=== PATIENT | female | born 1940 | race African-American/Black ===

== ENCOUNTER → 2016-10-10 | Outpatient (CLI) | payer MEDICARE, OTHER ==
[~2016-10-10] MED LIST: CARI350T21 PO; CLON0.1T PO; FERR200T3 PO; FURO40TA4 PO; HYDR-2595 PO; LEVO50TA7 PO; NISO8.5T PO; TRAM50TA2 PO
[2016-10-10 16:06] LABS: Urine Bilirubin Negative (Negative); Urine Blood Negative /uL (Negative); Urine Color Yellow (Yellow); Urine Glucose Normal (Normal); Urine Ketone Negative (Negative); Urine Nitrite Negative (Negative); Urine Urobilinogen Normal (Negative)
[2016-10-10 16:27] LABS: BUN/Creatinine Ratio 17.2; Bilirubin, Direct 0.1 mg/dL (0-0.2); Bilirubin, Total 0.3 mg/dL (0.2-1.0); Calcium 9.2 mg/dL (8.5-10.1); Potassium 5.4 mmol/L (3.5-5.1); Total Protein 8.3 g/dL (6.4-8.2)
[2016-10-10 16:44] LABS: Basophils # (auto) 0 uL; Basophils % (auto) 0.2 % (0.0-2.0); DEFINITIVE VIEW TRANSMISSION; Eosinophils # (auto) 0.1 uL; Eosinophils % (auto) 2.1 % (0.0-7.0); Hematocrit 27.6 % (36.0-46.0); Mean Corpuscular Hemoglobin 33.3 pg (28.0-32.0); Mean Corpuscular Hgb Conc. 32.5 g/dL (32.0-36.0); Mean Corpuscular Volume 102.2 fL (80.0-100.0); Mean Platelet Volume 7.6 fL (7.4-10.4); Monocytes # (auto) 0.5 uL; Monocytes % (auto) 6.9 % (0.0-12.0); Neutrophils # (auto) 5.2 uL; Neutrophils % (auto) 75.8 % (37.0-80.0); Platelet Count (auto) 278 10^3/uL (140-450); Red Cell Distribution Width 15.4 % (11.6-16.0); White Blood Cell 6.9 10^3/uL (4.4-10.8)
[2016-10-10 17:59] LABS: Macrocytosis Slight; Platelet Estimate Adequate
== END | disposition home or self-care (01) ==
LOC: LAB 10:04
PROVIDERS: ATTEND Internal Medicine Cardiovascular Disease
DX: E78.00 Pure hypercholesterolemia, unspecified (principal); D64.9 Anemia, unspecified; I10 Essential (primary) hypertension; E03.9 Hypothyroidism, unspecified; E55.9 Vitamin D deficiency, unspecified; K74.1 Hepatic sclerosis; E11.9 Type 2 diabetes mellitus without complications; N39.0 Urinary tract infection, site not specified
CPT/HCPCS: 36415; 80048; 80061; 80076; 81003; 82306; 83036; 84443; 85025

== ENCOUNTER → 2017-04-12 | Outpatient (CLI) | payer MEDICARE, OTHER ==
[~2017-04-12] MED LIST changes: +ADENOSINE 90 MG/30 ML INJ IV ONE; +ADENOSINE 92 MG in GIVE UN-DILUTED 0 ML IV ONE; +CARI-316 PO; -CARI350T21 PO
== END | disposition home or self-care (01) ==
LOC: Rad HDHVI 09:11
PROVIDERS: ATTEND Internal Medicine Cardiovascular Disease
DX: I95.9 Hypotension, unspecified (principal); I25.2 Old myocardial infarction; N19 Unspecified kidney failure; M25.511 Pain in right shoulder
CPT/HCPCS: 78452; 93005; 93306; 96374; 96375; A9500; J0153

== ENCOUNTER → 2017-08-14 | Outpatient (CLI) | payer MEDICARE, OTHER ==
[~2017-08-14] MED LIST changes: -ADENOSINE 90 MG/30 ML INJ IV ONE; -ADENOSINE 92 MG in GIVE UN-DILUTED 0 ML IV ONE; +ASCO500T11 PO; +CLON0.1D7 TD; +DIAZ10TA PO; +DICLTAB53 PO; +ESOM40CA39 PO; +HYDR-531 PO; +LEVO1CAP3 PO; +MUPI2OIN10 TOP; +SEVE800T8 PO
[2017-08-14 11:45] VITALS: BP 98/49
[2017-08-14 12:15] VITALS: BP 107/45
[2017-08-14 16:55] LABS: Basophils # (auto) 0 uL; Eosinophils # (auto) 0.1 uL; Hemoglobin 11.2 g/dL (12.2-16.2); Monocytes # (auto) 0.5 uL; Neutrophils # (auto) 3.6 uL; White Blood Cell 5.2 10^3/uL (4.4-10.8)
[2017-08-14 16:57] LABS: Basophils % (auto) 0.6 % (0.0-2.0); Eosinophils % (auto) 2.6 % (0.0-7.0); Hematocrit 33.3 % (36.0-46.0); Lymphocytes % (auto) 19.4 % (10.0-50.0); Mean Corpuscular Hemoglobin 37.1 pg (28.0-32.0); Mean Corpuscular Hgb Conc. 33.7 g/dL (32.0-36.0); Neutrophils % (auto) 68.4 % (37.0-80.0); Nucleated Red Blood Cells % 0.2 %; Platelet Count (auto) 211 10^3/uL (140-450); Red Blood Cells 3.03 10^6/uL (4.0-5.20); Red Cell Distribution Width 13.9 % (11.8-14.3)
[2017-08-14 16:59] LABS: Calcium 8.6 mg/dL (8.5-10.1); Potassium 3.8 mmol/L (3.5-5.1)
[2017-08-14 17:25] LABS: INR 0.98 (0.9-1.15); Partial Thromboplastin Time 27.3 sec (22.64-33.71); Prothrombin Time 10.7 sec (9.37-12.3)
== END | disposition home or self-care (01) ==
LOC: Rad HDHVI 11:18
PROVIDERS: ATTEND Internal Medicine Cardiovascular Disease
DX: Z01.818 Encounter for other preprocedural examination (principal); I70.0 Atherosclerosis of aorta; M85.88 Other specified disorders of bone density and structure, other site; D64.9 Anemia, unspecified; R79.1 Abnormal coagulation profile; I10 Essential (primary) hypertension
CPT/HCPCS: 36415; 71046; 80048; 85025; 85610; 85730; 93005; G0463

== ENCOUNTER 2017-08-16 11:17 | Day surgery (SDC) | payer MEDICARE, OTHER ==
[~2017-08-16] VITALS: Ht 162.6 cm; Wt 108.9 kg
[~2017-08-16 11:17] MED LIST changes: -CARI-316 PO; -CLON0.1T PO; -FERR200T3 PO; -HYDR-2595 PO
[2017-08-16] MEDS ORDERED: IOHEXOL 350 MG/ML 100ML IJ ONE ×2 (11:48→11:58)
[2017-08-16] MEDS ORDERED: LIDOCAINE 2%HCL (LOCAL ANESTH.) INJ 20ML MDV ONE (11:48)
[2017-08-16] MEDS ORDERED: ANGIOMAX 250 MG VIAL IV ONE (12:14)
[2017-08-16] MEDS ORDERED: SODIUM CHL 0.9% 0 ML ONE (12:15)
[2017-08-16] MEDS ORDERED: fentaNYL CITRATE 100 MCG/2 ML VL ONE (12:15)
[2017-08-16] MEDS ORDERED: MIDAZOLAM HCL 1MG/1ML-2 ML VIAL ONE (12:15)
[2017-08-16] MEDS ORDERED: IODIXANOL 320MG/ML 100ML BTL IV ONE (12:35)
== END 2017-08-16 15:00 | disposition home or self-care (01) ==
LOC: CATH 11:17
PROVIDERS: ATTEND Internal Medicine Cardiovascular Disease
DX: R07.9 Chest pain, unspecified (principal); R06.02 Shortness of breath; E66.9 Obesity, unspecified; E66.01 Morbid (severe) obesity due to excess calories; I12.0 Hypertensive chronic kidney disease with stage 5 chronic kidney disease or end stage renal disease; N18.6 End stage renal disease; E78.5 Hyperlipidemia, unspecified; M19.90 Unspecified osteoarthritis, unspecified site; Z68.41 Body mass index [BMI] 40.0-44.9, adult; Z88.1 Allergy status to other antibiotic agents; Z88.4 Allergy status to anesthetic agent
CPT/HCPCS: 93458; C1760; C1894; J1644; J2250; J3010; J7030; Q9967; 99152

== ENCOUNTER → 2017-09-12 | Outpatient (CLI) | payer MEDICARE, OTHER | END | disposition home or self-care (01) | LOC: LAB 12:22 | PROVIDERS: ATTEND Internal Medicine Cardiovascular Disease | DX: A49.02 Methicillin resistant Staphylococcus aureus infection, unspecified site (principal); I12.0 Hypertensive chronic kidney disease with stage 5 chronic kidney disease or end stage renal disease; E11.22 Type 2 diabetes mellitus with diabetic chronic kidney disease; N18.6 End stage renal disease | CPT/HCPCS: 87081 ==

== ENCOUNTER → 2018-07-24 | Outpatient (CLI) | payer MEDICARE, OTHER | END | disposition home or self-care (01) | LOC: Rad HDHVI 11:08 | PROVIDERS: ATTEND Internal Medicine Cardiovascular Disease | DX: I10 Essential (primary) hypertension (principal); I25.5 Ischemic cardiomyopathy | CPT/HCPCS: 93306 ==

== ENCOUNTER → 2018-07-30 | Outpatient (CLI) | payer MEDICARE, OTHER ==
[~2018-07-30] VITALS: Ht 162.6 cm; Wt 115.7 kg
[~2018-07-30] MED LIST changes: +ADENOSINE 90 MG/30 ML INJ IV ONE; +ADENOSINE 97 MG in GIVE UN-DILUTED 0 ML IV ONE
== END | disposition home or self-care (01) ==
LOC: Rad HDHVI 13:34
PROVIDERS: ATTEND Internal Medicine Cardiovascular Disease
DX: I12.0 Hypertensive chronic kidney disease with stage 5 chronic kidney disease or end stage renal disease (principal); N18.6 End stage renal disease; I25.5 Ischemic cardiomyopathy
CPT/HCPCS: 78452; 93005; 96374; 96375; A9500; J0153

== ENCOUNTER → 2018-10-28 | Outpatient (CLI) | payer MEDICARE, OTHER ==
[~2018-10-28] MED LIST changes: -ADENOSINE 90 MG/30 ML INJ IV ONE; -ADENOSINE 97 MG in GIVE UN-DILUTED 0 ML IV ONE; +READI-CAT 2 (BARIUM SULF)(VANILLA SMOOTHIE) 450ML ONE
== END | disposition home or self-care (01) ==
LOC: Rad HDHVI 11:48
PROVIDERS: ATTEND Internal Medicine Cardiovascular Disease
DX: K57.30 Diverticulosis of large intestine without perforation or abscess without bleeding (principal); N26.1 Atrophy of kidney (terminal); I70.0 Atherosclerosis of aorta; Z90.49 Acquired absence of other specified parts of digestive tract; Z90.710 Acquired absence of both cervix and uterus
CPT/HCPCS: 74176

== ENCOUNTER → 2019-06-13 | Outpatient (CLI) | payer MEDICARE, OTHER ==
[~2019-06-13] MED LIST changes: -READI-CAT 2 (BARIUM SULF)(VANILLA SMOOTHIE) 450ML ONE
== END | disposition home or self-care (01) ==
LOC: Rad HDHVI 10:55
PROVIDERS: ATTEND Internal Medicine Cardiovascular Disease
DX: S43.003A Unspecified subluxation of unspecified shoulder joint, initial encounter (principal); I77.819 Aortic ectasia, unspecified site; X58.XXXA Exposure to other specified factors, initial encounter; Y93.89 Activity, other specified; Y92.89 Other specified places as the place of occurrence of the external cause; Y99.8 Other external cause status
CPT/HCPCS: 71046

== ENCOUNTER 2019-12-31 12:45 | Inpatient (IN) | payer MEDICARE, OTHER ==
[~2019-12-31] VITALS: Ht 162.6 cm; Wt 106.6 kg
[2019-12-31 13:43] LABS: Eosinophils # (auto) 0 10 ^3/uL (0-0.8); Mean Corpuscular Volume 97.5 fL (80.0-100.0)
[2019-12-31 13:45] LABS: Basophils # (auto) 0.1 10 ^3/uL (0-0.2); Basophils % (auto) 0.3 % (0.0-2.0); Eosinophils % (auto) 0.2 % (0.0-7.0); Hematocrit 15.7 % (36.0-46.0); Lymphocytes # (auto) 1.1 10 ^3/uL (0.4-5.4); Lymphocytes % (auto) 4.6 % (10.0-50.0); Mean Corpuscular Hemoglobin 31.3 pg (28.0-32.0); Monocytes # (auto) 2.3 10 ^3/uL (0-1.3); Monocytes % (auto) 9.7 % (0.0-12.0); Neutrophils # (auto) 20.3 10 ^3/uL (1.6-8.6); Neutrophils % (auto) 85.2 % (37.0-80.0); Platelet Count (auto) 337 10^3/uL (140-450); Red Blood Cells 1.61 10^6/uL (4.0-5.20); Red Cell Distribution Width 19.5 % (11.8-14.3); White Blood Cell 23.8 10^3/uL (4.4-10.8)
[2019-12-31 14:00] LABS: Albumin 2.6 g/dL (3.4-5.0); Calcium 7.4 mg/dL (8.5-10.1); Magnesium 2.6 mg/dL (1.6-2.6); Potassium 4.3 mmol/L (3.5-5.1)
[2019-12-31 14:07] LABS: Bilirubin, Total 0.3 mg/dL (0.2-1.0); Total Protein 6.7 g/dL (6.4-8.2)
[2019-12-31 14:09] LABS: BUN/Creatinine Ratio 8.6
[2019-12-31] MEDS ORDERED: SODIUM CHLORIDE 0.9% 500 ML IV ONE (15:45)
[2019-12-31 17:15] VITALS: BP 151/53
[2019-12-31 17:35] VITALS: BP 158/62
[2019-12-31] MEDS ORDERED: NITROGLYCERIN 0.4 MG SL TAB SL PRN (17:45)
[2019-12-31] MEDS ORDERED: MORPHINE SULF INJ 2 MG/ML SYRINGE 1ML IV PRN (17:45)
[2019-12-31] MEDS ORDERED: FUROSEMIDE 40 MG/4 ML VIAL IV ONE (17:45)
[2019-12-31] MEDS ORDERED: HYDROcodone-ACET 10/325MG TAB PO SCH (18:00)
[2019-12-31] MEDS ORDERED: CLON0.1T PO (19:00)
[2019-12-31] MEDS ORDERED: CARI-277 PO (19:02)
[2019-12-31] MEDS ORDERED: DIAZ5TAB3 PO (19:03)
[2019-12-31] MEDS ORDERED: MIDO5TAB2 PO (19:05)
[2019-12-31] MEDS ORDERED: NIFE90TA49 PO ×2 (19:07→19:08)
[2019-12-31] MEDS ORDERED: FERR1TAB17 PO (19:11)
[2019-12-31] MEDS ORDERED: LIDO2.5C3 EX (19:13)
[2019-12-31 20:30] VITALS: BP 170/85
[2019-12-31 22:02] VITALS: BP 182/85
--- NOTE | 2019-12-31 22:30 | NUR ---
Telemetry admit from ISHMAEL MALAGON admitted to Telemetry unit after SBAR received. Patient oriented to Anuja Stewart RN primary RN, unit, room, bed, and unit policies regarding patient care and visiting hours. Patient now on continuous telemetry monitoring, tele box # 50 and telemetry reading on arrival to unit is SR. Patient weighed by bedscale and encouraged to call if they need something. All questions and concerns addressed, patient verbalized understanding. Bed in lowest position, bed alarm on, call light within reach, will continue to monitor Note: []
[2020-01-01] VITALS (11 sets, daily range): BP systolic 132–174; BP diastolic 57–92
--- NOTE | 2020-01-01 00:52 | NUR ---
1 unit of PRBC hooked after verification done, monitor for BT reaction
--- NOTE | 2020-01-01 03:33 | NUR ---
Blood transfusion done, flushed tubing with NS, no BT reaction noted
[2020-01-01] MEDS: LEVOTHYROXINE SODIUM 50 MCG TAB PO SCH (05:46)
[2020-01-01 05:50] LABS: Eosinophils # (auto) 0 10 ^3/uL (0-0.8); Eosinophils % (auto) 0.2 % (0.0-7.0); Hemoglobin 7.7 g/dL (12.2-16.2)
[2020-01-01 05:52] LABS: Basophils # (auto) 0.1 10 ^3/uL (0-0.2); Basophils % (auto) 0.5 % (0.0-2.0); Hematocrit 23.3 % (36.0-46.0); Lymphocytes # (auto) 1.2 10 ^3/uL (0.4-5.4); Mean Corpuscular Hemoglobin 31.5 pg (28.0-32.0); Mean Corpuscular Hgb Conc. 33.1 g/dL (32.0-36.0); Mean Corpuscular Volume 95.1 fL (80.0-100.0); Monocytes # (auto) 2.2 10 ^3/uL (0-1.3); Monocytes % (auto) 9.3 % (0.0-12.0); Neutrophils # (auto) 19.6 10 ^3/uL (1.6-8.6); Nucleated Red Blood Cells % 0.1 %; Platelet Count (auto) 305 10^3/uL (140-450); Red Blood Cells 2.45 10^6/uL (4.0-5.20); Red Cell Distribution Width 16.7 % (11.8-14.3); White Blood Cell 23.1 10^3/uL (4.4-10.8)
[2020-01-01 06:14] LABS: Potassium 4.8 mmol/L (3.5-5.1)
[2020-01-01 06:22] LABS: Albumin 2.4 g/dL (3.4-5.0); BUN/Creatinine Ratio 8.6; Calcium 7.2 mg/dL (8.5-10.1); Phosphorus 3.5 mg/dL (2.5-4.90); Total Protein 6.8 g/dL (6.4-8.2)
[2020-01-01] MEDS ORDERED: VANCOMYCIN 1GM/250ML 250 ML IV ONE (07:30)
[2020-01-01] MEDS: PIPERACILLIN-TAZOB 2.25GM 50 ML IV SCH ×2 (09:54→21:11)
[2020-01-01] MEDS: HYDROcodone-ACET 10/325MG TAB PO PRN ×2 (09:55→17:44)
[2020-01-01] MEDS: NIFEdipine ER 30 MG TAB PO SCH (10:00)
--- NOTE | 2020-01-01 10:22 | NUR ---
COMMUNITY DEVELOPMENT DIRECTOR AT BEDSIDE.
--- NOTE | 2020-01-01 10:51 | NUR ---
ENDED TRANSFUSION ON AUG WHEN ARRIVING ON SHIFT PRBC WAS NOT RUNNING. UNAWARE OF THE END TIME.
--- NOTE | 2020-01-01 12:54 | NUR ---
BLOOD INFUSED WITH DISLYSIS
--- NOTE | 2020-01-01 14:42 | NUR ---
DIALYSIS COMPLETE 2.9L TAKEN OFF. 1 UNIT OF BLOOD GIVEN BP 156/73 HR 92
--- NOTE | 2020-01-01 19:30 | NUR ---
Opening Shift Note Assumed care of patient, awake and alert. No S/S of distress/SOB or pain. Instructed on POC and to be NPO after MN, for EGD tomorrow call for assist PRN, patient verbalized understanding. Bed in lowest position, bed alarm on, call light within reach,will continue to monitor for changes Q1hr and PRN.
[2020-01-01] MEDS ORDERED: EPOETIN ALFA 10,000 UNIT/1 ML VIAL SC ONE (21:00)
[2020-01-01] MEDS ORDERED: PANTOPRAZOLE 40 MG TAB PO SCH (22:00)
[2020-01-02 05:00] VITALS: BP 142/69
[2020-01-02] MEDS: LEVOTHYROXINE SODIUM 50 MCG TAB PO SCH (05:49)
[2020-01-02] MEDS: HYDROcodone-ACET 10/325MG TAB PO PRN ×2 (05:50→22:49)
[2020-01-02 06:32] LABS: Basophils # (auto) 0 10 ^3/uL (0-0.2); Basophils % (auto) 0.3 % (0.0-2.0); Eosinophils # (auto) 0.1 10 ^3/uL (0-0.8); Eosinophils % (auto) 0.8 % (0.0-7.0); Hematocrit 28.6 % (36.0-46.0); Hemoglobin 9.6 g/dL (12.2-16.2); Lymphocytes # (auto) 1.1 10 ^3/uL (0.4-5.4); Mean Corpuscular Hemoglobin 32.1 pg (28.0-32.0); Mean Corpuscular Hgb Conc. 33.6 g/dL (32.0-36.0); Mean Corpuscular Volume 95.5 fL (80.0-100.0); Monocytes # (auto) 1.7 10 ^3/uL (0-1.3); Monocytes % (auto) 10.2 % (0.0-12.0); Neutrophils # (auto) 13.3 10 ^3/uL (1.6-8.6); Neutrophils % (auto) 81.7 % (37.0-80.0); Nucleated Red Blood Cells % 0.1 %; Platelet Count (auto) 339 10^3/uL (140-450); Red Cell Distribution Width 16.4 % (11.8-14.3); White Blood Cell 16.2 10^3/uL (4.4-10.8)
[2020-01-02 06:46] LABS: INR 1.24 (0.9-1.15)
[2020-01-02 08:00] VITALS: BP 135/66
[2020-01-02 09:00] VITALS: BP 135/66
[2020-01-02] MEDS ORDERED: FLUMAZENIL 0.1 MG/ML INJ 10ML MDV IV ONE (09:06)
[2020-01-02] MEDS ORDERED: NALOXONE HCL 0.4 MG/ML VIAL ONE (09:06)
[2020-01-02] MEDS ORDERED: SIMETHICONE 40 MG/0.6 ML ORAL DROP ONE (09:06)
[2020-01-02] MEDS ORDERED: SODIUM CHLORIDE LOCK 10 ML ONE (09:06)
[2020-01-02] MEDS ORDERED: diphenhdrAMINE HCL 50 MG/1 ML VL ONE (09:07)
[2020-01-02] MEDS ORDERED: LIDOCAINE VISCOUS 2% 15ML UD ONE (09:08)
[2020-01-02] MEDS: MIDAZOLAM HCL 5 MG/ML-1ML VIAL ONE ×2 (09:48→09:51)
[2020-01-02] MEDS: fentaNYL CITRATE 100 MCG/2 ML VL ONE ×2 (09:48→09:51)
[2020-01-02] MEDS: PIPERACILLIN-TAZOB 2.25GM 50 ML IV SCH ×2 (10:00→22:27)
[2020-01-02] MEDS: NIFEdipine ER 30 MG TAB PO SCH (10:00)
[2020-01-02 13:00] VITALS: BP 135/75
--- NOTE | 2020-01-02 13:45 | NUR ---
RECEIVED A CALL FROM [facility]DEL[facility]IO IN MICRO PATIENT POSITIVE MRSA IN NARES. CHARGE NURSE OMARI NOTIFIED AND DR MATHIS NOTIFIED WILL IMPLEMENT ORDERS OF BACTROBAN ORDERED BY DR MATHIS.
[2020-01-02 16:39] VITALS: BP 136/74
--- NOTE | 2020-01-02 19:40 | NUR ---
Opening Shift Note Assumed care of patient, awake and alert. No S/S of distress/SOB or pain. Safety measures in place, bed in lowest position, bed rails raised x2, call light within reach. Instructed on POC and to call for assist PRN, will continue to monitor for changes Q1hr and PRN.
--- NOTE | 2020-01-02 22:35 | NUR ---
Spoke with pt daughter Daughter called and expressed concern about patient receiving biopsy results. Daughter expressed desire for Dr. Mendez to not tell pt about biopsy results and to call daughter during rounds in order to provide support to pt. Addendum: 01/03/20 at 0029 by Estefany Miller RN RN Will relay message to carmelo HALL and Dr. Mendez if possible.
[2020-01-02] MEDS: MUPIROCIN 2% OINT 15gm or 22gm EACHNOSTRI SCH (22:48)
[2020-01-03 06:00] VITALS: BP 142/68
[2020-01-03] MEDS: LEVOTHYROXINE SODIUM 50 MCG TAB PO SCH (06:22)
[2020-01-03] MEDS: HYDROcodone-ACET 10/325MG TAB PO PRN ×3 (06:33→18:43)
--- NOTE | 2020-01-03 06:42 | NUR ---
Pt states Boylston not effective Pt states that she takes Boylston at home and it does not make much of a difference. Pt received Boylston but was advised to express concerns to MD. Notified pt that day RN will also be notified.
[2020-01-03] MEDS ORDERED: SODIUM CHL 0.9% 1000 ML BAG XX ONE (07:00)
[2020-01-03 09:00] VITALS: BP 105/52
[2020-01-03] MEDS: PIPERACILLIN-TAZOB 2.25GM 50 ML IV SCH ×2 (09:46→21:35)
[2020-01-03] MEDS: MUPIROCIN 2% OINT 15gm or 22gm EACHNOSTRI SCH ×2 (09:46→21:35)
[2020-01-03] MEDS: NIFEdipine ER 30 MG TAB PO SCH (10:00)
[2020-01-03 13:00] VITALS: BP 135/74
[2020-01-03 17:00] VITALS: BP 163/85
--- NOTE | 2020-01-03 19:20 | NUR ---
Opening Shift Note Assumed care of patient, awake and alert. No S/S of distress/SOB or pain. patient currently with the dialysis nurse. Instructed on POC and to call for assist PRN, will continue to monitor for changes Q1hr and PRN.
--- NOTE | 2020-01-03 19:43 | NUR ---
Dialysis completed, nurse removed 3L. Patient tolerated procedure well. Patient's BP 126/71, HR 94, RR 18. Patient denies pain or discomfort. Will continue to monitor every hour and as needed.
--- NOTE | 2020-01-03 20:00 | NUR ---
PATIENT'S COMPLAINING THAT RIGHT HAND IV IS UNCOMFORTABLE. SITE IS FREE FROM REDNESS OR SWELLING. DISCONTINUED IV WITH NO PAIN OR DISTRESS TO PATIENT. IV CATHETER INTACT. NEW IV PLACED RIGHT UPPER CHEST 22G, SALINE LOCKED.
[2020-01-03] MEDS ORDERED: EPOETIN ALFA 10,000 UNIT/1 ML VIAL SC ONE (21:00)
[2020-01-03 22:00] VITALS: BP 122/69
--- NOTE | 2020-01-03 22:19 | NUR ---
Paged Dr. Avila patient stating [place] is not alleviating her pain, requesting something else. Awaiting orders, will continue to monitor every hour and as needed.
--- NOTE | 2020-01-03 23:10 | NUR ---
ORDERS RECEIVED. AWAITING PHARMACY TO VERIFY. WILL CONTINUE TO MONITOR.
[2020-01-03] MEDS: KETOROLAC TROMETH 30 MG/ML 1ML VIAL IV PRN (23:44)
[2020-01-04 05:00] VITALS: BP 111/70
[2020-01-04] MEDS: LEVOTHYROXINE SODIUM 50 MCG TAB PO SCH (06:21)
[2020-01-04] MEDS: KETOROLAC TROMETH 30 MG/ML 1ML VIAL IV PRN ×2 (06:29→21:55)
--- NOTE | 2020-01-04 07:30 | NUR ---
Opening Shift Note Assumed care of patient, awake and alert. No S/S of distress/SOB or pain. Safety measures in place, bed in lowest position, bed rails raised x2, call light within reach. All needs met at this time. Instructed on POC and to call for assist PRN, will continue to monitor for changes Q1hr and PRN. Addendum: 01/04/20 at 2107 by Estefany Miller RN RN Note time incorrect. Correct time is 1929.
[2020-01-04 08:44] VITALS: BP 135/62
[2020-01-04] MEDS: PIPERACILLIN-TAZOB 2.25GM 50 ML IV SCH ×2 (09:42→21:54)
[2020-01-04] MEDS: NIFEdipine ER 30 MG TAB PO SCH (09:42)
[2020-01-04] MEDS: MUPIROCIN 2% OINT 15gm or 22gm EACHNOSTRI SCH ×2 (10:00→21:55)
[2020-01-04 12:54] VITALS: BP 125/79
--- NOTE | 2020-01-04 15:41 | NUR ---
Nutrition Assessment Notes Please refer to link for full assessment notes. Est Energy needs: 8110-1079 kcals (20-23 kcal/kgBW) d/t pt with ESRD on HD Est Protein needs: 114-124 gms/day (1.1-1.2 gm/kgBW) d/t pt with ESRD on HD Will continue to monitor and reassess prn. Addendum: 01/04/20 at [address] Amended: Links added.
[2020-01-04] MEDS: LACTULOSE 20Gm/30ML SOLN PO PRN (15:44)
[2020-01-04 17:22] VITALS: BP 134/63
[2020-01-04 22:00] VITALS: BP 120/63
[2020-01-05 05:00] VITALS: BP 116/56
--- NOTE | 2020-01-05 06:15 | NUR ---
Pt expressed concern about not having a bowel movement yet. Pt offered prescribed Lactulose, pt refused stating she "ought to wait a little longer". Pt advised to call if she decides that she wants the Lactulose, pt verbalized understanding. Will continue to monitor and notify day RN.
--- NOTE | 2020-01-05 06:15 | NUR ---
Turned and repositioned Pt turned onto her right side, bottom assessed for skin integrity, no issues noted at this time. Pt claimed to be having pain of 7/10 in her abdomen and shoulder. Pt offered prescribed Toradol 30mg, pt refused medication, says she will "wait a little longer". Will continue to monitor and notify day RN.
[2020-01-05] MEDS: LEVOTHYROXINE SODIUM 50 MCG TAB PO SCH (06:21)
[2020-01-05 09:00] VITALS: BP 114/68
[2020-01-05] MEDS: PIPERACILLIN-TAZOB 2.25GM 50 ML IV SCH ×2 (09:34→22:32)
[2020-01-05] MEDS: MUPIROCIN 2% OINT 15gm or 22gm EACHNOSTRI SCH ×2 (09:34→22:32)
[2020-01-05] MEDS: LACTULOSE 20Gm/30ML SOLN PO PRN ×2 (09:35→22:32)
[2020-01-05] MEDS: NIFEdipine ER 30 MG TAB PO SCH (09:35)
[2020-01-05] MEDS ORDERED: IOHEXOL 300 MG/ML 100ML BOTTLE IJ ONE (12:02)
[2020-01-05 13:00] VITALS: BP 113/57
--- NOTE | 2020-01-05 14:38 | NUR ---
DR HEALY AT BEDSIDE, PT INFORMED OF THE BIOPSY RESULT AND THE CT SCAN RESULT, DR. HEALY CALLED THE DAUGHTER AND MADE AWARE.
--- NOTE | 2020-01-05 15:10 | NUR ---
CALLED DR. OLIVERA, INFORMED OF THE CT SCAN RESULT AND DAUGHTER REQUESTING TO TALK TO HIM, DR. OLIVERA REQUESTED TO FAX THE CT SCAN RESULT WITH DAUGHTER'S PHONE NUMBER.
--- NOTE | 2020-01-05 15:30 | NUR ---
CT RESULT FAXED TO DR. OLIVERA.
--- NOTE | 2020-01-05 15:56 | NUR ---
assessment Patient is a 79 year old female who is alert and oriented. Prior to admission patient lived home with family and functioned with assistance. Per patient she will return home to her prior living arrangements post discharge and family will transport her home. Patient informed me she has a fww, cane, and bsc for home use. Patient informed me Dr. Avila is her PCP. Patient informed me she is on service with [facility]. Patient informed me she is on service with [facility] at 1 pm. Patient has no safety issues regarding returning home on discharge. Patient will need a resumption order for [facility] to discharge. I will continue to monitor and follow up as appropriate. I informed patient she has a right to speak to a neonatal social worker regarding all care. I informed patient she has a right to participate in any and all discharge planning. Patient is aware of visiting hours on the hospital floor. I informed patient she has a right to privacy. Patient has an advanced directive and her POA is her daughter Darcie [phone]. Patient verbalized understanding and agreed to discharge plan home or to SNF. Addendum: 01/05/20 at 1601 by Lou HARRIS Amended: Links added.
[2020-01-05 17:02] VITALS: BP 121/57
--- NOTE | 2020-01-05 19:50 | NUR ---
Opening Shift Note Assumed care of patient, awake and alert. No S/S of distress/SOB or pain. Instructed on POC and to call or assist PRN, will continue to monitor for changes Q1hr and PRN.
[2020-01-05 22:00] VITALS: BP 112/59
--- NOTE | 2020-01-05 22:00 | NUR ---
PATIENT DAUGHTER EMELY CALLED UPDATED PATIENT CONDITION AND PLAN OF CARE. EMELY VERBALIZES UNDERSTANDING WILL CONTINUE TO MONITOR PATIENT.
--- NOTE | 2020-01-05 22:30 | NUR ---
PATIENT C/O 03/27 ABDOMINAL AND BACK PAIN. REQUESTING PAIN MEDICAITON. ADMINISTERED TORADOL AND NORCO PRESCRIBED. PATIENT TOLERATED WELL. WILL CONTINUE TO MONITOR PATIENT.
[2020-01-05] MEDS: KETOROLAC TROMETH 30 MG/ML 1ML VIAL IV PRN (22:32)
[2020-01-05] MEDS: HYDROcodone-ACET 10/325MG TAB PO PRN (22:32)
--- NOTE | 2020-01-06 01:11 | NUR ---
GAVE REPORT TO NURSE CALI TO RESUME CARE OF PATIENT. TRANSFERRING PATIENT TO ROOM 220B
--- NOTE | 2020-01-06 01:30 | NUR ---
assumed care of pt who is alert and oriented x2, f/c in place, NAD noted. Pt given a cup of ice and tv turned to C per request.
[2020-01-06 06:01] VITALS: BP 115/57
[2020-01-06 06:28] LABS: Basophils # (auto) 0.1 10 ^3/uL (0-0.2); Basophils % (auto) 0.6 % (0.0-2.0); Eosinophils # (auto) 0.6 10 ^3/uL (0-0.8); Hemoglobin 8.9 g/dL (12.2-16.2); Lymphocytes # (auto) 1.5 10 ^3/uL (0.4-5.4); Lymphocytes % (auto) 15.7 % (10.0-50.0); Mean Corpuscular Hgb Conc. 32.8 g/dL (32.0-36.0); Mean Corpuscular Volume 97.5 fL (80.0-100.0); Monocytes # (auto) 0.9 10 ^3/uL (0-1.3); Monocytes % (auto) 9.7 % (0.0-12.0); Neutrophils # (auto) 6.4 10 ^3/uL (1.6-8.6); Platelet Count (auto) 442 10^3/uL (140-450); Red Blood Cells 2.77 10^6/uL (4.0-5.20); White Blood Cell 9.5 10^3/uL (4.4-10.8)
[2020-01-06 06:49] LABS: BUN/Creatinine Ratio 6.8; Calcium 7.4 mg/dL (8.5-10.1); Potassium 4.3 mmol/L (3.5-5.1)
[2020-01-06] MEDS ORDERED: SODIUM CHL 0.9% 1000 ML BAG XX ONE (07:00)
--- NOTE | 2020-01-06 08:15 | NUR ---
Opening Shift Note Assumed care of patient, awake and alert. No S/S of distress/SOB or pain. Instructed on POC and to call for assist PRN, will continue to monitor for changes Q1hr and PRN. Bed locked in lowest position with two side rails up and call light in reach.
[2020-01-06 09:00] VITALS: BP 120/62
[2020-01-06] MEDS: PIPERACILLIN-TAZOB 2.25GM 50 ML IV SCH ×2 (10:29→22:45)
[2020-01-06] MEDS: NIFEdipine ER 30 MG TAB PO SCH (10:30)
[2020-01-06] MEDS: MUPIROCIN 2% OINT 15gm or 22gm EACHNOSTRI SCH ×2 (11:30→22:44)
[2020-01-06 13:00] VITALS: BP 115/49
[2020-01-06 17:00] VITALS: BP 121/68
[2020-01-06 22:12] VITALS: BP 100/52
[2020-01-06] MEDS: HYDROcodone-ACET 10/325MG TAB PO PRN (22:48)
[2020-01-06] MEDS: KETOROLAC TROMETH 30 MG/ML 1ML VIAL IV PRN (23:57)
[2020-01-07 05:33] VITALS: BP 114/64
[2020-01-07] MEDS ORDERED: LIDOCAINE 1% HCL (LOCAL ANESTH.) INJ 20ML MDV ONE (07:01)
[2020-01-07] MEDS ORDERED: ceFAZolin 1GM VL ONE (07:01)
[2020-01-07] MEDS ORDERED: HEPARIN SODIUM (PORCINE) 5000 UNITS/ML 1ML VIAL ONE (07:02)
[2020-01-07] MEDS ORDERED: HEPARIN 1,000 UNITS/ml 1ML VIAL ONE (07:02)
--- NOTE | 2020-01-07 07:15 | NUR ---
OFF UNIT PATIENT TRANSFERRED TO O.R. FOR PROCEDURE
[2020-01-07] MEDS ORDERED: ceFAZolin 1GM/50ML 50 ML IV ONE (07:18)
[2020-01-07] MEDS ORDERED: GLYCOPYRROLATE 0.2 MG/ML 1ML VIAL ONE (07:25)
[2020-01-07] MEDS ORDERED: KETAMINE HCL 10 ML ONE (07:25)
[2020-01-07] MEDS ORDERED: MIDAZOLAM HCL 1MG/1ML-2 ML VIAL ONE (07:25)
[2020-01-07] MEDS ORDERED: ONDANSETRON HCL 4 MG/2 ML VIAL ONE (07:25)
[2020-01-07 07:51] LABS: INR 1.22 (0.9-1.15); Partial Thromboplastin Time 35.4 sec (23.64-32.05)
[2020-01-07] MEDS ORDERED: ONDANSETRON HCL 4 MG/2 ML VIAL IV PRN (08:30)
--- NOTE | 2020-01-07 09:40 | NUR ---
ON UNIT PATIENT RETURNED TO ROOM. NO S/S OF DISTRESS, SOB, NO C/O PAIN. WILL CONTINUE TO MONITOR
[2020-01-07] MEDS: PIPERACILLIN-TAZOB 2.25GM 50 ML IV SCH ×2 (09:55→22:08)
[2020-01-07] MEDS: MUPIROCIN 2% OINT 15gm or 22gm EACHNOSTRI SCH (09:55)
[2020-01-07] MEDS: NIFEdipine ER 30 MG TAB PO SCH (09:56)
[2020-01-07 12:00] VITALS: BP 116/64
--- NOTE | 2020-01-07 16:23 | NUR ---
Nutrition Assessment Notes Pt wt is 105.0 kg Pt was sleeping with no relatives at bedside when rounded this morning. Pt is with a Renal Standard diet, appetite is fair, aeb ave 67% PO intake over 3 meals per RN doc. Will continue to monitor PO status, skin status, pertinent labs and weight trends. Will f/u in 3-5 days. Est Energy needs: 8643-1951 kcals (20-23 kcal/kgBW) d/t pt with ESRD on HD Est Protein needs: 114-124 gms/day (1.1-1.2 gm/kgBW) d/t pt with ESRD on HD Will continue to monitor and reassess prn. LABS: BUN 52 H, Cr 7.64 H, GFR 5 L, Gluc 108 H, Ca 7.4 L, Alb 2.4 L GI: Pt has constipation per RN doc. BS: 19 low risk. Refer to wound assessment report for full details. PES: 1) Obesity r/t energy itake in excess of energy needs aeb 189% IBW and BMI of 39.1 kg/m2 2) Altered nutrition related alb values r/t current/chronic medical condition aeb elev RFTs, low GFR, hyperglycemia, mod Comments Will continue to monitor PO status, skin status, pertinent labs and weight trends. Will f/u in 3-5 days. 1) Continue to closely monitor pt PO intake to meet at least 75% of meals 2) Continue current plan of care
[2020-01-07 17:00] VITALS: BP 107/70
[2020-01-07] MEDS ORDERED: FERROUS SULFATE 300 MG/5 ML ORAL LIQ GT SCH (22:00)
[2020-01-07 22:07] VITALS: BP 120/62
[2020-01-07] MEDS: HYDROcodone-ACET 10/325MG TAB PO PRN (22:21)
[2020-01-08] VITALS (7 sets, daily range): BP systolic 118–139; BP diastolic 58–68
[2020-01-08] MEDS: LEVOTHYROXINE SODIUM 50 MCG TAB PO SCH ×2 (06:42→06:44)
[2020-01-08] MEDS ORDERED: SODIUM CHL 0.9% 1000 ML BAG XX ONE (07:00)
--- NOTE | 2020-01-08 07:30 | NUR ---
Opening Shift Note Assumed care of patient, awake and alert. No S/S of distress/SOB or pain. Instructed on POC and to call for assist PRN, will continue to monitor for changes Q1hr and PRN. Fall precautions in place per safety protocol.
[2020-01-08 07:36] LABS: Hematocrit 25.6 % (36.0-46.0)
[2020-01-08 07:40] LABS: Hemoglobin 8.5 g/dL (12.2-16.2)
[2020-01-08 07:54] LABS: % Iron Saturation 26.7 % (15-50)
[2020-01-08 07:55] LABS: Potassium 4.8 mmol/L (3.5-5.1)
[2020-01-08 07:59] LABS: BUN/Creatinine Ratio 6.3; Calcium 7.2 mg/dL (8.5-10.1)
[2020-01-08] MEDS: PIPERACILLIN-TAZOB 2.25GM 50 ML IV SCH ×2 (10:00→22:08)
--- NOTE | 2020-01-08 11:00 | NUR ---
Patient receiving dialysis at this time. Patients ABX and Procardia held due to dialysis. Will cont to monitor patient.
--- NOTE | 2020-01-08 13:00 | NUR ---
Hold PT, pt is receiving dialysis. Will attempt again later.
--- NOTE | 2020-01-08 15:25 | NUR ---
Dialysis Dialysis done at this time. 2L out. Patient VSS. Will administer morning meds at this time.
[2020-01-08] MEDS: NIFEdipine ER 30 MG TAB PO SCH (15:30)
[2020-01-08] MEDS ORDERED: PIPERACILLIN-TAZOB 2.25GM 50 ML IV ONE (15:30)
[2020-01-08] MEDS: HYDROcodone-ACET 10/325MG TAB PO PRN ×2 (15:43→23:05)
[2020-01-08] MEDS ORDERED: FLEET ENEMA(ADULT) 135 ML PR PRN (15:45)
--- NOTE | 2020-01-08 16:15 | NUR ---
New orders Spoke to MD Avila regarding patient ferrous sulfate medication being scheduled for GTube route and patient does not have a GTube in place. Per MD Avila, change to PO 325mg BID. This nurse informed MD Avila, that patient was requesting an alternative method other than lactulose for her constipation. Per patient, lactulose is not working and is only making her gassy. Per MD Avila, order Fleet enemas daily PRN for constipation. MD Avila also orders one unit of rbc's or patient. This nurse notified MD Avila that HGB was 8.5. Per MD Avila, still give one unit of RBC'S. All orders read back and verified. Will carry out new orders and cont to monitor patient.
[2020-01-08] MEDS: FERROUS SULFATE 325 MG TAB PO SCH (18:09)
[2020-01-09] VITALS (7 sets, daily range): BP systolic 110–142; BP diastolic 57–70
--- NOTE | 2020-01-09 01:48 | NUR ---
1 unit of PRBC's Transfused Patient educated on S/S prior to transfusion. Patient showed no S/S of reaction during transfusion. Patient tolerated well. Will continue to monitor.
[2020-01-09] MEDS: LEVOTHYROXINE SODIUM 50 MCG TAB PO SCH (05:57)
[2020-01-09] MEDS: HYDROcodone-ACET 10/325MG TAB PO PRN (05:58)
[2020-01-09] MEDS: FERROUS SULFATE 325 MG TAB PO SCH (08:05)
[2020-01-09 08:40] LABS: Basophils # (auto) 0 10 ^3/uL (0-0.2); Eosinophils # (auto) 0.5 10 ^3/uL (0-0.8); Hemoglobin 9.5 g/dL (12.2-16.2); Lymphocytes # (auto) 1.4 10 ^3/uL (0.4-5.4); Mean Corpuscular Volume 93.6 fL (80.0-100.0); Neutrophils # (auto) 8.3 10 ^3/uL (1.6-8.6)
[2020-01-09 08:44] LABS: Basophils % (auto) 0.3 % (0.0-2.0); Eosinophils % (auto) 4.5 % (0.0-7.0); Hematocrit 28.8 % (36.0-46.0); Lymphocytes % (auto) 12.3 % (10.0-50.0); Mean Corpuscular Hemoglobin 30.9 pg (28.0-32.0); Monocytes % (auto) 9.1 % (0.0-12.0); Neutrophils % (auto) 73.8 % (37.0-80.0); Nucleated Red Blood Cells % 0.1 %; Platelet Count (auto) 476 10^3/uL (140-450); Red Blood Cells 3.08 10^6/uL (4.0-5.20); Red Cell Distribution Width 16.9 % (11.8-14.3); White Blood Cell 11.3 10^3/uL (4.4-10.8)
[2020-01-09] MEDS: PIPERACILLIN-TAZOB 2.25GM 50 ML IV SCH (09:06)
[2020-01-09] MEDS: NIFEdipine ER 30 MG TAB PO SCH (09:07)
--- NOTE | 2020-01-09 14:40 | NUR ---
Called and left a message to Dr. Avila to let him know that as per pt, she was told by doctor that she was going to be d/c today with home health, and that there is no orders placed for d/c or for home health.
--- NOTE | 2020-01-09 16:03 | NUR ---
SS consult for home PT. Pt resides with her family and will be returning home upon discharge. Pt to resume services with [facility] upon discharge. Contacted [facility] ([phone])and faxed clinical information. Pt accepted for services and will be followed up post discharge. No further social service concerns or needs.
--- NOTE | 2020-01-09 17:00 | NUR ---
Discharge instructions given as ordered. Encourage to follow up with PMD as instructed. All questions and concerns addressed. Patient verbalized understanding. Medication reconciliation form completed and copy given to patient. No home medications held in Pharmacy, and no needed vaccines to be given. IV removed with catheter intact, pressure dressing applied, petersen catheter removed. Telemetry unit returned to ICU.
--- NOTE | 2020-01-09 17:35 | NUR ---
Patient taken to vehicle via wheelchair with all personal belongings, accompanied by staff, family member awaiting out of the hospital. No distress noted at time of departure.
[2020-01-22] MEDS ORDERED: NIFE90TA49 PO (14:47)
== END 2020-01-09 17:35 | disposition home health service (06) | DRG 871 ==
LOC: ER 12:45 → EDBD 12:45 → TELE 12:46 → TELE-WESTW 21:59 → TELE-CENTR 01-06 01:26
PROVIDERS: ADMIT Internal Medicine Cardiovascular Disease; ATTEND Internal Medicine Cardiovascular Disease
PROC: 30233N1 Transfusion of Nonautologous Red Blood Cells into Peripheral Vein, Percutaneous Approach (ICD-10-PCS; 2020-01-01)
PROC: 5A1D70Z Performance of Urinary Filtration, Intermittent, Less than 6 Hours Per Day (ICD-10-PCS; 2020-01-01)
PROC: 5A1D70Z Performance of Urinary Filtration, Intermittent, Less than 6 Hours Per Day (ICD-10-PCS; 2020-01-03)
PROC: 5A1D70Z Performance of Urinary Filtration, Intermittent, Less than 6 Hours Per Day (ICD-10-PCS; 2020-01-06)
PROC: 05H433Z Insertion of Infusion Device into Left Innominate Vein, Percutaneous Approach (ICD-10-PCS; 2020-01-07)
PROC: 0DB38ZX Excision of Lower Esophagus, Via Natural or Artificial Opening Endoscopic, Diagnostic (ICD-10-PCS; 2020-01-07)
PROC: B51V1ZA Fluoroscopy of Other Veins using Low Osmolar Contrast, Guidance (ICD-10-PCS; 2020-01-07)
PROC: 0JH63WZ Insertion of Totally Implantable Vascular Access Device into Chest Subcutaneous Tissue and Fascia, Percutaneous Approach (ICD-10-PCS; principal; 2020-01-07 07:35)
PROC: 5A1D70Z Performance of Urinary Filtration, Intermittent, Less than 6 Hours Per Day (ICD-10-PCS; 2020-01-08)
DX: A41.9 Sepsis, unspecified organism (principal); N18.6 End stage renal disease; J18.9 Pneumonia, unspecified organism; G93.41 Metabolic encephalopathy; E44.0 Moderate protein-calorie malnutrition; I13.2 Hypertensive heart and chronic kidney disease with heart failure and with stage 5 chronic kidney disease, or end stage renal disease; C15.9 Malignant neoplasm of esophagus, unspecified; C78.7 Secondary malignant neoplasm of liver and intrahepatic bile duct; I47.1 Supraventricular tachycardia; N39.0 Urinary tract infection, site not specified; K92.1 Melena; Z99.2 Dependence on renal dialysis; I50.9 Heart failure, unspecified; E66.01 Morbid (severe) obesity due to excess calories; M19.90 Unspecified osteoarthritis, unspecified site; Z20.828 Contact with and (suspected) exposure to other viral communicable diseases; D50.0 Iron deficiency anemia secondary to blood loss (chronic); I49.3 Ventricular premature depolarization; J45.909 Unspecified asthma, uncomplicated; K59.00 Constipation, unspecified; I25.2 Old myocardial infarction; Z82.3 Family history of stroke; Z82.49 Family history of ischemic heart disease and other diseases of the circulatory system; Z85.01 Personal history of malignant neoplasm of esophagus; Z86.718 Personal history of other venous thrombosis and embolism; Z79.899 Other long term (current) drug therapy; Z88.1 Allergy status to other antibiotic agents; Z88.8 Allergy status to other drugs, medicaments and biological substances; Z68.39 Body mass index [BMI] 39.0-39.9, adult
CPT/HCPCS: 36415; 43239; 70450; 71045; 71260; 74177; 80048; 80053; 82270; 82728; 83540; 83550; 83605; 83735; 83880; 84100; 84443; 84484; 85014; 85018; 85025; 85610; 85730; 86850; 86900; 86901; 86920; 87040; 87081; 90935; 93005; 96360; 97110; 97116; 97530; G0378; J0690; J0885; J1642; J1885; J2001; J2250; J2405; J2543

== ENCOUNTER → 2020-01-20 | Outpatient (CLI) | payer MEDICARE, OTHER ==
[~2020-01-20] MED LIST changes: +CARI-277 PO; -CLON0.1D7 TD; +CLON0.1T PO; -DIAZ10TA PO; +DIAZ5TAB3 PO; -DICLTAB53 PO; +FERR1TAB17 PO; -LEVO1CAP3 PO; +LIDO2.5C3 EX; +MIDO5TAB2 PO; -MUPI2OIN10 TOP; +NIFE90TA49 PO; -NISO8.5T PO; -SEVE800T8 PO
--- NOTE | 2020-01-20 14:00 | NUR ---
CLINIC PT ARRIVED TO THE [facility] FROM BACK OFFICE WITH ORDERS FOR UA, CBC, AND CT HEAD. A/OX4, WHEELCHAIR, ASSISTED BY DAUGHTER. HX DISCUSSED WITH PT. PT HAS ESOPHAGEAL CA AND IS SCHEDULED WITH [facility] NEXT WEEK. DUE TO THE TIME THE PT AND DAUGHTER REQUESTED TO COME BACK ON FOR CT BECAUSE THEY HAD AN APPOINTMENT WITH [facility]. PT IS ON DIALYSIS AND IS SCHEDULED FOR TX ON WED AND FRI THIS WEEK. PT HAS LOW URINE O/P. DAUGHTER WAS GIVEN URINE CUP WITH INSTRUCTIONS TO GET CLEAN CATCH AND REFRIGERATE. LABS WERE DRAWN AND SENT. MEDICATION REGIMEN WAS REVIEWED WITH PT AND DAUGHTER.
--- NOTE | 2020-01-20 14:45 | NUR ---
Discharge Instructions See e-MAR for any mediations given with this visit. Patient education given on disease process. Patient verbalized understanding. Previous labs reviewed. Patient discharged in stable condition with after care instructions and follow up appointment FOR CT ON TH @ 9AM.
[2020-01-20 15:56] LABS: Hematocrit 19.5 % (36.0-46.0); Mean Corpuscular Hemoglobin 33.7 pg (28.0-32.0); Mean Corpuscular Hgb Conc. 31.6 g/dL (32.0-36.0); Mean Corpuscular Volume 106.8 fL (80.0-100.0); Platelet Count (auto) 425 10^3/uL (140-450); Red Blood Cells 1.82 10^6/uL (4.0-5.20); White Blood Cell 16.5 10^3/uL (4.4-10.8)
[2020-01-20 16:12] LABS: Red Cell Distribution Width 24.6 % (11.8-14.3)
[2020-01-20 16:17] LABS: Hemoglobin 6.2 g/dL (12.2-16.2)
[2020-01-20 16:18] LABS: Basophils % (manual) 0 (0.0-2.0); Blast Cells 0; Eosinophils % (manual) 0 (0-7); Myelocytes % 0; Promyelocytes % 0; Reactive Lymphocytes 0
[2020-01-20 16:55] LABS: Band Neutrophils % (manual) 2; Lymphocytes % (manual) 11 (10.0-50.0); Metamyelocytes % 1; Monocytes % (manual) 7 (0-12)
== END | disposition home or self-care (01) ==
LOC: Rad HDHVI 13:38
PROVIDERS: ATTEND Internal Medicine Cardiovascular Disease
DX: R94.4 Abnormal results of kidney function studies (principal); D64.9 Anemia, unspecified
CPT/HCPCS: 36415; 82565; 85007; 85027

== ENCOUNTER → 2020-01-21 | Outpatient (CLI) | payer MEDICARE, OTHER ==
--- NOTE | 2020-01-21 14:00 | NUR ---
MD MATHIS AWARE OF MANAGER BUSINESS INFORMATION NOT BEING ABLE TO SCHEDULE THE PT FOR BLOOD TRANSFUSION TILL NEXT WEEK, AND NO AVAILABLE HOSPITAL BED FOR DIRECT ADMIT. MEDICAL ASSEMBLER D/C PROCRIT AND STARTED THE PT ON IRON PER DAUGHTER. U/A WAS OBTAINED FROM DAUGHTER, DAUGHTER STATED THAT SHE BELIEVED THAT THE SPECIMEN MAY BE CONTAMINATED WITH BUT CREAM AND SHE DID NOT REFRIGERATE THE SPECIMEN. PT IS TO COME INTO THE CLINIC TOMORROW FOR CT HEAD AND REPEAT HH PER MD ORDERS. PT IS TO HAVE DIALYSIS ON SUNDAY PER DAUGHTER AND STARTS CHEMO NEXT WEEK AT [facility] PER DAUGHTER.
== END | disposition home or self-care (01) ==
LOC: LAB 13:36
PROVIDERS: ATTEND Internal Medicine Cardiovascular Disease
DX: R82.79 Other abnormal findings on microbiological examination of urine (principal)
CPT/HCPCS: 87086

== ENCOUNTER → 2020-01-22 | Outpatient (CLI) | payer MEDICARE, OTHER ==
[~2020-01-22] VITALS: Ht 163.8 cm; Wt 104.3 kg
[~2020-01-22] MED LIST changes: +IOHEXOL 350 MG/ML 100ML IJ ONE
[2020-01-22 10:35] VITALS: BP 111/67
--- NOTE | 2020-01-22 10:35 | NUR ---
CLINIC PT ARRIVED TO THE [facility] CLINIC FOR CT HEAD WITH IV CONTRAST PER MD ORDERS. A/OX4, WHEELCHAIR. ASSISTED BY DAUGHTER. BREATHING IS EVEN AND UNLABORED.
--- NOTE | 2020-01-22 10:50 | NUR ---
IV insertion IV access obtained, via clean sterile technique by inserting 22 gauge catheter at after 2 attempt(s). IV secured properly. No trauma to site. Patient tolerated procedure well. STAT REDRAW CBC DRAWN AND SENT. NOTE INSERTED BY YASMANI HALL
--- NOTE | 2020-01-22 11:31 | NUR ---
IV removal IV DC'd with sterile technique, catheter fully intact. Pressure dressing applied to site. Patient tolerated procedure well. Discharged with aftercare instructions per MD. NOTE: REMOVED BY YASMANI HALL
[2020-01-22 11:38] VITALS: BP 144/57
--- NOTE | 2020-01-22 11:38 | NUR ---
Discharge Instructions See e-MAR for any mediations given with this visit. Patient education given on disease process. Patient verbalized understanding. Previous labs reviewed. Patient discharged in stable condition with after care instructions and follow up appointment. PT AND DAUGHTER GIVEN INSTRUCTIONS TO GO TO [facility] PRE OP FOR CROSS AND MATCH TO RECEIVE 2 UNITS PRBCS ON SUN. BOTH VERBALIZED UNDERSTANDING. PT TO BE CALLED WITH LAB RESULTS WHEN IN.
[2020-01-22 11:57] VITALS: BP 111/67
[2020-01-22 12:22] LABS: Eosinophils # (auto) 0.1 10 ^3/uL (0-0.8); Eosinophils % (auto) 0.8 % (0.0-7.0); Mean Corpuscular Volume 106.4 fL (80.0-100.0); Monocytes # (auto) 0.8 10 ^3/uL (0-1.3)
[2020-01-22 12:23] LABS: Basophils # (auto) 0.1 10 ^3/uL (0-0.2); Basophils % (auto) 0.5 % (0.0-2.0); Lymphocytes # (auto) 0.7 10 ^3/uL (0.4-5.4); Lymphocytes % (auto) 6.2 % (10.0-50.0); Mean Corpuscular Hemoglobin 34.4 pg (28.0-32.0); Mean Corpuscular Hgb Conc. 32.4 g/dL (32.0-36.0); Monocytes % (auto) 6.8 % (0.0-12.0); Neutrophils # (auto) 9.6 10 ^3/uL (1.6-8.6); Neutrophils % (auto) 85.7 % (37.0-80.0); Platelet Count (auto) 370 10^3/uL (140-450); Red Blood Cells 1.78 10^6/uL (4.0-5.20); White Blood Cell 11.2 10^3/uL (4.4-10.8)
[2020-01-22 14:07] LABS: Hemoglobin 6.1 g/dL (12.2-16.2)
== END | disposition home or self-care (01) ==
LOC: Rad HDHVI 10:18
PROVIDERS: ATTEND Internal Medicine Cardiovascular Disease
DX: G31.9 Degenerative disease of nervous system, unspecified (principal); I25.89 Other forms of chronic ischemic heart disease; D64.9 Anemia, unspecified
CPT/HCPCS: 36415; 70470; 85025; G0463; Q9967

== ENCOUNTER 2020-01-23 08:28 | Day surgery (SDC) | payer MEDICARE, OTHER ==
[2020-01-23] VITALS (15 sets, daily range): BP systolic 130–168; BP diastolic 56–84
[~2020-01-23 08:28] MED LIST changes: -IOHEXOL 350 MG/ML 100ML IJ ONE
--- NOTE | 2020-01-23 08:45 | NUR ---
RECEIVED PT. VIA OWN W/C, ALERT, ORIENTED TO PERSON, PLACE, TIME & EVENT, RESP. EVEN & UNLABORED, 2 PT. IDENTIFIERS TO VERIFY IDENTITY, PT. VERBALIZED UNDERSTANDING RE: PROCEDURE & IS COMPLIANT, PREPARED FOR BLOOD TRANSFUSION SCHEDULED DENIES DISCOMFORT, NAD NOTED. Addendum: 01/23/20 at 1335 by SEFERINO DONAHUE RN WALL O2 PER NC APPLIED @ 2L/MIN DUE TO PT. IS ON CONTINUOUS HOME O2.
--- NOTE | 2020-01-23 09:00 | NUR ---
PT LYING IN SEMI-CONNER'S POSITION ON [facility], STATES FEELS "FINE" AND IS READY FOR BLOOD TRANSFUSION.
--- NOTE | 2020-01-23 09:10 | NUR ---
20G IV NS LOCK STARTED IN LEFT AC PER ASEPTIC TECHNIQUE; PT. TOLERATED WELL.
--- NOTE | 2020-01-23 09:25 | NUR ---
PER PROTOCOL: BLOOD TRANSFUSION STARTED @ 100 ML/HR VIA INFUSION PUMP.
--- NOTE | 2020-01-23 10:06 | NUR ---
TRANSFUSION RATE INCREASED TO 130 ML/HR; IV SITE BENIGN. PT. DENIES DISCOMFORT.
--- NOTE | 2020-01-23 10:50 | NUR ---
BLOOD TRANSFUSION IN PROGRESS- RATE INCREASED TO 150 ML/HR VIA PUMP; IV SITE BENIGN. PT. REMAINS COMFORTABLE & CONTINUES TO DENY DISCOMFORT. RESTING PERIODICALLY. NAD NOTED.
--- NOTE | 2020-01-23 11:55 | NUR ---
BLODD TRANSFUSION FOR 1ST UNIT COMPLETE. PT. REMAINS STABLE WITH NO REACTION. IV NS INFUSION STARTED @ 3O ML/HR UNTIL TRANSFUSION OF SECOND UNIT BLOOD BEGINS.
--- NOTE | 2020-01-23 12:30 | NUR ---
SECOND UNIT OF BLOOD STARTED VIA INFUSION PUMP @ 100 ML/HR; IV SITE BENIGN. PT. CONTINUES TO DENY DISCOMFORT. NAD NOTED.
--- NOTE | 2020-01-23 13:15 | NUR ---
EATING CARDIAC LUNCH. DENIES DISCOMFORT, BLOOD TRANSFUSION RATE INCREASED TO 150 ML/HR; SITE BENIGN.
--- NOTE | 2020-01-23 14:00 | NUR ---
BLOOD TRANSFUSION IN PROGRESS; IV SITE BENIGN. PT. NAPPING PERIODICALLY BUT AWAKENS EASILY & DENIES DISCOMFORT.
--- NOTE | 2020-01-23 15:10 | NUR ---
BLOOD TRANSFUSION COMPLETE. PT. TOLERATED WELL WITH NO TRANSFUSION REACTION. PT. AND DAUGHTER (VIA PHONE CALL) VERBALIZED DISCHARGE INSTRUCTIONS AND STATE WILL COMPLY 7 F[facility] INSTRU[facility]ED. [place]. STATES PT. HAS DIALYSIS APPT. TOMORROW MORNING.
--- NOTE | 2020-01-23 15:27 | NUR ---
IV DISCONTINUED WITH CATH INTACT. SITE DRESSED WITH PRESSURE DSD & COBAN.
--- NOTE | 2020-01-23 15:40 | NUR ---
D/C via own w/c to POV in c/o daughter. To home in stable condition.
== END 2020-01-23 15:40 | disposition home or self-care (01) ==
LOC: CATH 08:28
PROVIDERS: ATTEND Internal Medicine Cardiovascular Disease
DX: K92.2 Gastrointestinal hemorrhage, unspecified (principal); C15.9 Malignant neoplasm of esophagus, unspecified; D64.9 Anemia, unspecified; M19.90 Unspecified osteoarthritis, unspecified site; N18.6 End stage renal disease; Z99.2 Dependence on renal dialysis; Z88.1 Allergy status to other antibiotic agents; Z88.8 Allergy status to other drugs, medicaments and biological substances; Z11.59 Encounter for screening for other viral diseases
CPT/HCPCS: 36430; 86850; 86900; 86901; 86920; J7030; P9016; U0003

== ENCOUNTER → 2020-02-02 | Outpatient (CLI) | payer MEDICARE, BC ==
[~2020-02-02] MED LIST changes: -TRAM50TA2 PO
[2020-02-02 15:53] LABS: Basophils # (auto) 0 10 ^3/uL (0-0.2); Basophils % (auto) 0.1 % (0.0-2.0); Eosinophils # (auto) 0.1 10 ^3/uL (0-0.8); Eosinophils % (auto) 1.6 % (0.0-7.0); Hematocrit 27.3 % (36.0-46.0); Hemoglobin 8.8 g/dL (12.2-16.2); Lymphocytes % (auto) 12.5 % (10.0-50.0); Mean Corpuscular Hemoglobin 32.7 pg (28.0-32.0); Mean Corpuscular Hgb Conc. 32.4 g/dL (32.0-36.0); Mean Corpuscular Volume 100.9 fL (80.0-100.0); Monocytes # (auto) 0.7 10 ^3/uL (0-1.3); Monocytes % (auto) 8.2 % (0.0-12.0); Neutrophils # (auto) 6.2 10 ^3/uL (1.6-8.6); Neutrophils % (auto) 77.6 % (37.0-80.0); Platelet Count (auto) 243 10^3/uL (140-450)
[2020-02-02 16:01] LABS: BUN/Creatinine Ratio 7.2; Calcium 7.6 mg/dL (8.5-10.1); Potassium 4.6 mmol/L (3.5-5.1)
== END | disposition home or self-care (01) ==
LOC: LAB 13:11
PROVIDERS: ATTEND Internal Medicine Cardiovascular Disease
DX: I10 Essential (primary) hypertension (principal); D64.9 Anemia, unspecified
CPT/HCPCS: 36415; 80048; 85025

== ENCOUNTER → 2020-03-10 | Outpatient (CLI) | payer MEDICARE, BC ==
[2020-03-10 16:07] LABS: Potassium 4.4 mmol/L (3.5-5.1)
[2020-03-10 16:12] LABS: Albumin 3.2 g/dL (3.4-5.0); BUN/Creatinine Ratio 7.4; Bilirubin, Total 0.4 mg/dL (0.2-1.0)
[2020-03-10 16:20] LABS: Basophils # (auto) 0 10 ^3/uL (0-0.2); Eosinophils # (auto) 0.1 10 ^3/uL (0-0.8); Hemoglobin 8.3 g/dL (12.2-16.2); Monocytes # (auto) 0.7 10 ^3/uL (0-1.3); Red Blood Cells 2.34 10^6/uL (4.0-5.20)
[2020-03-10 16:24] LABS: Basophils % (auto) 0.3 % (0.0-2.0); Eosinophils % (auto) 0.9 % (0.0-7.0); Hematocrit 24.5 % (36.0-46.0); Lymphocytes # (auto) 1.2 10 ^3/uL (0.4-5.4); Lymphocytes % (auto) 18.4 % (10.0-50.0); Mean Corpuscular Hemoglobin 35.4 pg (28.0-32.0); Mean Corpuscular Hgb Conc. 33.8 g/dL (32.0-36.0); Mean Corpuscular Volume 104.8 fL (80.0-100.0); Monocytes % (auto) 10.8 % (0.0-12.0); Neutrophils # (auto) 4.6 10 ^3/uL (1.6-8.6); Neutrophils % (auto) 69.6 % (37.0-80.0); Platelet Count (auto) 158 10^3/uL (140-450); Red Cell Distribution Width 19.5 % (11.8-14.3); White Blood Cell 6.6 10^3/uL (4.4-10.8)
== END | disposition home or self-care (01) ==
LOC: LAB 13:08
PROVIDERS: ATTEND Internal Medicine Cardiovascular Disease
DX: I10 Essential (primary) hypertension (principal); D64.9 Anemia, unspecified
CPT/HCPCS: 36415; 80053; 85025

== ENCOUNTER → 2020-03-22 | Outpatient (CLI) | payer MEDICARE, BC ==
--- NOTE | 2020-03-22 08:30 | NUR ---
CLINIC PT ARRIVED TO THE [facility] CLINIC FOR PRE OP ORDERS FOR BLOOD TRANSFUSION. A/OX4, WHEELCHAIR BOUND, ACCOMPANIED BY DAUGHTER, BREATHING IS EVEN AND UNLABORED. PT GIVEN A COPY OF ORDERS FOR TYPE AND CROSS. TRANSFUSION TO BE DONE ON 03/26/20. PT INSTRUCTED TO GO TO HOSPITAL WITH ORDERS. PT AND DAUGHTER VERBALIZED UNDERSTANDING.
== END | disposition home or self-care (01) ==
LOC: CHF HDHVI 08:28
PROVIDERS: ATTEND Internal Medicine Cardiovascular Disease
DX: Z01.818 Encounter for other preprocedural examination (principal)
CPT/HCPCS: G0463

== ENCOUNTER 2020-03-26 06:47 | Day surgery (SDC) | payer MEDICARE, BC ==
[~2020-03-26] VITALS: Ht 163.8 cm; Wt 100.7 kg
[2020-03-26] VITALS (7 sets, daily range): BP systolic 118–168; BP diastolic 53–75
--- NOTE | 2020-03-26 10:05 | NUR ---
Blood transfusion Patient identifiers x 2 checked prior, blood consent reviewed, and blood band/patient ID band is in place on patient's right arm. This RN and ISABEL James present at bedside to verify blood. Patient verbalized understanding to s/s of blood transfusion reactions and verbalizes she will report any of these s/s immediately to staff. VS checked prior to administration. IV flushed prior and is intact/patent to right hand. Will proceed to monitor closely.
--- NOTE | 2020-03-26 10:20 | NUR ---
Patient is awake in bed, watching TV. Denies any s/s of blood transfusion reactions. VS WNL of baseline. IV site remains intact and patent. No s/s of distress/SOB noted.
--- NOTE | 2020-03-26 11:20 | NUR ---
Patient is resting in bed with eyes closed, breaths even and unlabored. No s/s of distress/SOB.
--- NOTE | 2020-03-26 11:30 | NUR ---
MD Avila made aware of elevated BP of 197/76. New orders received (see eMAR) and read back for verification. Will proceed to carry out orders per MD request.
[2020-03-26] MEDS ORDERED: cloNIDine HCL 0.1 MG TAB PO ONE ×2 (11:45→16:00)
--- NOTE | 2020-03-26 12:45 | NUR ---
Report given to ISABEL Salguero.
--- NOTE | 2020-03-26 13:30 | NUR ---
Patient is awake in bed watching television. NAD noted. Patient denies s/s of transfusion reaction.
--- NOTE | 2020-03-26 13:38 | NUR ---
Second unit of blood transfusion Prior to administration blood verified by this RN and ISABEL Salguero. Patient identifiers x 2 verified. IV site is intact/patent no s/s of infiltration. Patient denies any s/s of transfusion reactions. Will continue to monitor.
--- NOTE | 2020-03-26 13:53 | NUR ---
No s/s of distress/SOB. Patient resting comfortably in bed. Denies any s/s of transfusions reactions at this time.
--- NOTE | 2020-03-26 14:30 | NUR ---
Patient resting in bed with eyes closed. Breaths are even and unlabored. VS WNL of baseline. NAD noted.
--- NOTE | 2020-03-26 15:30 | NUR ---
Report given to ISABEL Rhoades.
--- NOTE | 2020-03-26 15:57 | NUR ---
Dr. Avila notified re: pt. status and blood pressure, order received to give oral BP medicine.
--- NOTE | 2020-03-26 16:30 | NUR ---
Blood transfusion complete. No reaction noted. Pt. states feels "fine" and is anxious to go home. Verbalized understanding of discharge instructions and is compliant.
--- NOTE | 2020-03-26 16:48 | NUR ---
IV removed with cath intact, gauze pressure dressing and Coban applied.
--- NOTE | 2020-03-26 17:14 | NUR ---
Discharged to POV via own w/c to home in c/o daughter who verbalized understanding re: D/C instructions. Will F/U with Dr. Avila as instructed. No problems anticipated.
== END 2020-03-26 17:14 | disposition home or self-care (01) ==
LOC: CATH 06:47
PROVIDERS: ATTEND Internal Medicine Cardiovascular Disease
DX: D64.9 Anemia, unspecified (principal); I20.9 Angina pectoris, unspecified; J44.9 Chronic obstructive pulmonary disease, unspecified; E66.9 Obesity, unspecified; J98.9 Respiratory disorder, unspecified; Z68.37 Body mass index [BMI] 37.0-37.9, adult; Z88.1 Allergy status to other antibiotic agents; Z88.8 Allergy status to other drugs, medicaments and biological substances; Z20.828 Contact with and (suspected) exposure to other viral communicable diseases
CPT/HCPCS: 36430; 86850; 86900; 86901; 86920; J7040; P9016; U0003

== ENCOUNTER 2020-04-30 08:19 | Day surgery (SDC) | payer MEDICARE, BC ==
[~2020-04-30] VITALS: Ht 30.5 cm; Wt 0.5 kg
[2020-04-30 09:08] VITALS: BP 119/59
--- NOTE | 2020-04-30 09:08 | NUR ---
Blood administration Two patient identifiers verified. Patient band and blood band in place to left wrist. VSS. Patient educated and instructed to report any s/s of blood transfusion reactions immediately to staff, verbalized understanding. Blood verified by this RN and ISABEL Null. Patient is resting in bed, NAD noted. Blood transfusion initiated and is infusing to right AC 20G IV, patent with no s/s of infiltration.
[2020-04-30 09:23] VITALS: BP 117/54
--- NOTE | 2020-04-30 09:23 | NUR ---
Patient is currently sitting in bed watching tv. Denies any s/s of transfusion reactions at this time. VSS, NAD noted.
--- NOTE | 2020-04-30 10:20 | NUR ---
Patient is currently resting in bed, denies pain or any s/s of transfusion reactions. NAD noted.
--- NOTE | 2020-04-30 11:00 | NUR ---
Report given to ISABEL Salguero.
[2020-04-30 11:28] VITALS: BP 165/74
[2020-04-30 11:30] VITALS: BP 174/81
[2020-04-30 11:47] VITALS: BP 156/78
[2020-04-30] MEDS ORDERED: cloNIDine HCL 0.1 MG TAB PO PRN (12:15)
--- NOTE | 2020-04-30 12:15 | NUR ---
MD Avila made aware of elevated BP New orders received and read back for verification (see eMAR).
--- NOTE | 2020-04-30 12:46 | NUR ---
VSS BP: 137/76, HR: 95 O2: 99% NAD noted. Patient denies any pain or discomfort at this time.
--- NOTE | 2020-04-30 13:47 | NUR ---
Patient currently resting in bed with eyes closed. Even rise and fall of chest observed. NAD noted.
--- NOTE | 2020-04-30 14:50 | NUR ---
Transfusion complete Second unit of blood infused. Patient is currently resting in bed. Denies any s/s of transfusion reaction. Will continue to monitor patient.
[2020-04-30 15:05] VITALS: BP 153/62
--- NOTE | 2020-04-30 15:05 | NUR ---
NAD noted. Breaths are even and unlabored. Patient denies any s/s of transfusion reactions at this time.
--- NOTE | 2020-04-30 15:35 | NUR ---
Patient taken out to vehicle via , this RN and physical therapists present for assistance of transfer to vehicle. Daughter Lawanda present for patient pick-up. IV discontinued prior, catheter intact and patent, pressure dressing applied to site. Discharge instructions and post blood transfusion care provided verbally and via handouts, pt verbalized understanding. All personal belongings in possession. No s/s of distress noted upon departure.
== END 2020-04-30 15:35 | disposition home or self-care (01) ==
LOC: CATH 08:19
PROVIDERS: ATTEND Internal Medicine Cardiovascular Disease
DX: D64.9 Anemia, unspecified (principal); J44.9 Chronic obstructive pulmonary disease, unspecified; I20.9 Angina pectoris, unspecified; Z20.828 Contact with and (suspected) exposure to other viral communicable diseases; Z98.890 Other specified postprocedural states; Z88.1 Allergy status to other antibiotic agents; Z88.8 Allergy status to other drugs, medicaments and biological substances; Z79.899 Other long term (current) drug therapy
CPT/HCPCS: 36430; 86850; 86900; 86901; 86920; J7030; P9016; U0003

== ENCOUNTER → 2020-07-13 | Outpatient (CLI) | payer MEDICARE, BC | END | disposition home or self-care (01) | LOC: Rad HDHVI 13:16 | PROVIDERS: ATTEND Internal Medicine Cardiovascular Disease | DX: Z01.810 Encounter for preprocedural cardiovascular examination (principal); I51.7 Cardiomegaly; R06.02 Shortness of breath | CPT/HCPCS: 93306 ==

== ENCOUNTER → 2020-07-27 | Outpatient (CLI) | payer MEDICARE, BC ==
[~2020-07-27] VITALS: Ht 162.6 cm; Wt 101.6 kg
[~2020-07-27] MED LIST changes: +ADENOSINE 85 MG in GIVE UN-DILUTED 0 ML IV ONE; +ADENOSINE 90 MG/30 ML INJ IV ONE
== END | disposition home or self-care (01) ==
LOC: Rad HDHVI 09:24
PROVIDERS: ATTEND Internal Medicine Cardiovascular Disease
DX: I25.10 Atherosclerotic heart disease of native coronary artery without angina pectoris (principal); I10 Essential (primary) hypertension; I25.2 Old myocardial infarction; R06.02 Shortness of breath; Z82.49 Family history of ischemic heart disease and other diseases of the circulatory system
CPT/HCPCS: 78452; 93005; 96374; 96375; A9500; J0153

== ENCOUNTER → 2020-09-20 | Outpatient (CLI) | payer MEDICARE, BC ==
[~2020-09-20] MED LIST changes: -ADENOSINE 85 MG in GIVE UN-DILUTED 0 ML IV ONE; -ADENOSINE 90 MG/30 ML INJ IV ONE
[2020-09-20 16:07] LABS: Basophils # (auto) 0 10 ^3/uL (0-0.2); Basophils % (auto) 0.8 % (0.0-2.0); Eosinophils # (auto) 0.1 10 ^3/uL (0-0.8); Hemoglobin 8.3 g/dL (12.2-16.2); Lymphocytes # (auto) 1.1 10 ^3/uL (0.4-5.4); Monocytes # (auto) 0.7 10 ^3/uL (0-1.3); Neutrophils # (auto) 3.1 10 ^3/uL (1.6-8.6); Nucleated Red Blood Cells % 0.1 %
[2020-09-20 16:10] LABS: Eosinophils % (auto) 1.5 % (0.0-7.0); Hematocrit 23.9 % (36.0-46.0); Lymphocytes % (auto) 21.8 % (10.0-50.0); Mean Corpuscular Hemoglobin 37.9 pg (28.0-32.0); Mean Corpuscular Hgb Conc. 34.8 g/dL (32.0-36.0); Monocytes % (auto) 14.3 % (0.0-12.0); Neutrophils % (auto) 61.6 % (37.0-80.0); Platelet Count (auto) 141 10^3/uL (140-450); Red Blood Cells 2.19 10^6/uL (4.0-5.20); Red Cell Distribution Width 16.9 % (11.8-14.3); White Blood Cell 5.1 10^3/uL (4.4-10.8)
[2020-09-20 16:27] LABS: BUN/Creatinine Ratio 7.3; Calcium 9.1 mg/dL (8.5-10.1); Potassium 4.1 mmol/L (3.5-5.1)
== END | disposition home or self-care (01) ==
LOC: LAB 11:14
PROVIDERS: ATTEND Internal Medicine Cardiovascular Disease
DX: D64.9 Anemia, unspecified (principal); I10 Essential (primary) hypertension
CPT/HCPCS: 36415; 80048; 85025

== ENCOUNTER 2020-11-09 15:44 | Inpatient (IN) | payer MEDICARE, BC ==
[~2020-11-09] VITALS: Ht 170.2 cm; Wt 102.6 kg
[2020-11-09 17:12] LABS: Hematocrit 24.5 % (36.0-46.0); Hemoglobin 8.4 g/dL (12.2-16.2); Mean Corpuscular Hemoglobin 37.4 pg (28.0-32.0); Mean Corpuscular Hgb Conc. 34.4 g/dL (32.0-36.0); Mean Corpuscular Volume 108.9 fL (80.0-100.0); Platelet Count (auto) 237 10^3/uL (140-450); Red Blood Cells 2.25 10^6/uL (4.0-5.20); Red Cell Distribution Width 17.4 % (11.8-14.3); White Blood Cell 5.7 10^3/uL (4.4-10.8)
[2020-11-09 17:15] LABS: Band Neutrophils % (manual) 0; Basophils % (manual) 0 (0.0-2.0); Blast Cells 0; Eosinophils % (manual) 0 (0-7); Metamyelocytes % 0; Myelocytes % 0; Promyelocytes % 0; Reactive Lymphocytes 0
[2020-11-09 17:27] LABS: Alanine Aminotransferase 12 U/L (13-56); Albumin 2.8 g/dL (3.4-5.0); Anion Gap 5 (5-15); Aspartate Aminotransferase 26 U/L (15-37); BUN/Creatinine Ratio 4.2; Blood Urea Nitrogen 21 mg/dL (7-18); Calcium 7.6 mg/dL (8.5-10.1); Carbon Dioxide 33 mmol/L (21-32); Chloride 99 mmol/L (98-107); GFR African American 11 mL/min; GFR Non-African American 9 mL/min; Glucose 114 mg/dL (74-106); Potassium 3.9 mmol/L (3.5-5.1); Sodium 137 mmol/L (136-145)
[2020-11-09 17:32] LABS: Alkaline Phosphatase 163 U/L (45-117); Bilirubin, Total 0.3 mg/dL (0.2-1.0)
[2020-11-09] MEDS ORDERED: FUROSEMIDE 40 MG/4 ML VIAL IV ONE (17:45)
[2020-11-09 17:51] LABS: Lymphocytes % (manual) 24 (10.0-50.0); Monocytes % (manual) 19 (0-12)
[2020-11-09] MEDS ORDERED: MORPHINE SULF INJ 2 MG/ML SYRINGE 1ML IV PRN (22:00)
[2020-11-09] MEDS ORDERED: GENTAMICIN SULFATE 280 MG in D5W 5% 100 ML IV ONE (22:00)
[2020-11-09] MEDS ORDERED: CARISOPRODOL 350 MG TAB PO PRN (22:00)
[2020-11-09] MEDS ORDERED: NITROGLYCERIN 0.4 MG SL TAB SL PRN (22:00)
[2020-11-09] MEDS ORDERED: diazePAM 5 MG TAB PO PRN (22:15)
[2020-11-09 22:52] LABS: % Iron Saturation 27.3 % (15-50)
[2020-11-10] VITALS (7 sets, daily range): BP systolic 116–164; BP diastolic 54–83
[2020-11-10] MEDS ORDERED: VANCOMYCIN 1GM/250ML 250 ML IV ONE
[2020-11-10] MEDS: HYDROcodone-ACET 10/325MG TAB PO PRN ×3 (00:15→16:46)
[2020-11-10 05:39] LABS: Hematocrit 25.6 % (36.0-46.0); Hemoglobin 8.9 g/dL (12.2-16.2)
[2020-11-10 06:03] LABS: % Iron Saturation 16.4 % (15-50)
[2020-11-10] MEDS: LEVOTHYROXINE SODIUM 50 MCG TAB PO SCH (06:09)
[2020-11-10] MEDS ORDERED: FAMO20TA10 PO (06:34)
[2020-11-10] MEDS ORDERED: DEXA4TAB PO (06:34)
[2020-11-10] MEDS ORDERED: LORA0.5T20 PO (06:34)
[2020-11-10] MEDS ORDERED: ONDA-144 PO (06:34)
[2020-11-10] MEDS ORDERED: PROC10TA2 PO (06:34)
[2020-11-10] MEDS ORDERED: METO-289 PO (06:34)
[2020-11-10] MEDS ORDERED: LOSA100T25 PO (06:45)
[2020-11-10] MEDS ORDERED: SODIUM CHL 0.9% 1000 ML BAG XX ONE (07:00)
[2020-11-10] MEDS ORDERED: GENTAMICIN SULFATE 280 MG in D5W 5% 100 ML IV ONE (08:45)
[2020-11-10] MEDS: PANTOPRAZOLE 40 MG TAB PO SCH (08:51)
[2020-11-10] MEDS: NIFEdipine ER 30 MG TAB PO SCH (08:52)
[2020-11-10] MEDS ORDERED: ONDANSETRON HCL 4 MG/2 ML VIAL IV PRN ×2 (17:15→17:30)
[2020-11-10] MEDS ORDERED: EPOETIN ALFA-EPBX 10,000 UNIT/1ML VIAL SC ONE (21:00)
[2020-11-11 05:00] VITALS: BP 114/56
[2020-11-11] MEDS: LEVOTHYROXINE SODIUM 50 MCG TAB PO SCH (06:27)
[2020-11-11 09:11] VITALS: BP 111/50
[2020-11-11] MEDS: NIFEdipine ER 30 MG TAB PO SCH (09:33)
[2020-11-11] MEDS: PANTOPRAZOLE 40 MG TAB PO SCH (09:34)
[2020-11-11] MEDS: HYDROcodone-ACET 10/325MG TAB PO PRN ×2 (10:20→19:32)
[2020-11-11 13:00] VITALS: BP 110/55
[2020-11-11 17:00] VITALS: BP 118/56
[2020-11-11] MEDS ORDERED: LACTULOSE 20Gm/30ML SOLN PO PRN (19:00)
[2020-11-11 22:00] VITALS: BP 130/60
[2020-11-12 05:00] VITALS: BP 126/62
[2020-11-12 05:20] LABS: Hemoglobin 8.7 g/dL (12.2-16.2)
[2020-11-12 05:23] LABS: Hematocrit 24.7 % (36.0-46.0); Mean Corpuscular Hgb Conc. 35.4 g/dL (32.0-36.0); Mean Corpuscular Volume 107.5 fL (80.0-100.0); Platelet Count (auto) 231 10^3/uL (140-450); White Blood Cell 13.3 10^3/uL (4.4-10.8)
[2020-11-12 05:44] LABS: Basophils % (manual) 0 (0.0-2.0); Blast Cells 0; Metamyelocytes % 0; Myelocytes % 0; Promyelocytes % 0; Reactive Lymphocytes 0
[2020-11-12 06:01] LABS: BUN/Creatinine Ratio 5.1; Calcium 7.8 mg/dL (8.5-10.1); Potassium 3.9 mmol/L (3.5-5.1)
[2020-11-12] MEDS: LEVOTHYROXINE SODIUM 50 MCG TAB PO SCH (06:20)
[2020-11-12] MEDS ORDERED: SODIUM CHL 0.9% 1000 ML BAG XX ONE (07:00)
[2020-11-12 07:28] LABS: Band Neutrophils % (manual) 1; Eosinophils % (manual) 1 (0-7); Lymphocytes % (manual) 7 (10.0-50.0); Monocytes % (manual) 21 (0-12)
[2020-11-12 09:00] VITALS: BP 131/68
[2020-11-12] MEDS: NIFEdipine ER 30 MG TAB PO SCH (09:38)
[2020-11-12] MEDS: PANTOPRAZOLE 40 MG TAB PO SCH (10:27)
[2020-11-12] MEDS: HYDROcodone-ACET 10/325MG TAB PO PRN (10:28)
[2020-11-12 13:00] VITALS: BP 134/78
[2020-11-12 15:49] VITALS: BP 131/68
[2020-11-12 17:00] VITALS: BP 129/93
[2020-11-12] MEDS ORDERED: EPOETIN ALFA-EPBX 10,000 UNIT/1ML VIAL SC ONE (21:00)
== END 2020-11-12 17:45 | disposition home or self-care (01) | DRG 374 ==
LOC: EDBD 15:44 → ER 15:44 → OVERFLOW 21:37 → WEST WING 23:12
PROVIDERS: ADMIT Internal Medicine Cardiovascular Disease; ATTEND Internal Medicine Cardiovascular Disease
PROC: 5A1D70Z Performance of Urinary Filtration, Intermittent, Less than 6 Hours Per Day (ICD-10-PCS; principal; 2020-11-10)
PROC: 5A1D70Z Performance of Urinary Filtration, Intermittent, Less than 6 Hours Per Day (ICD-10-PCS; 2020-11-12)
DX: C15.9 Malignant neoplasm of esophagus, unspecified (principal); N18.6 End stage renal disease; K92.2 Gastrointestinal hemorrhage, unspecified; I13.2 Hypertensive heart and chronic kidney disease with heart failure and with stage 5 chronic kidney disease, or end stage renal disease; Z20.822 Contact with and (suspected) exposure to COVID-19; D63.1 Anemia in chronic kidney disease; I50.9 Heart failure, unspecified; E88.09 Other disorders of plasma-protein metabolism, not elsewhere classified; J45.909 Unspecified asthma, uncomplicated; M19.90 Unspecified osteoarthritis, unspecified site; Z82.3 Family history of stroke; Z82.49 Family history of ischemic heart disease and other diseases of the circulatory system; Z85.01 Personal history of malignant neoplasm of esophagus; Z86.73 Personal history of transient ischemic attack (TIA), and cerebral infarction without residual deficits; Z99.2 Dependence on renal dialysis; I25.2 Old myocardial infarction; Z88.1 Allergy status to other antibiotic agents; Z88.8 Allergy status to other drugs, medicaments and biological substances; Z79.899 Other long term (current) drug therapy
CPT/HCPCS: 36415; 71045; 80048; 80053; 82728; 83540; 83550; 83880; 84484; 85007; 85014; 85018; 85027; 85045; 86850; 86900; 86901; 87040; 87081; 87426; 93005; 93970; 96374; G0378; J7060

== ENCOUNTER 2020-11-16 14:30 | Inpatient (IN) | payer MEDICARE, BC ==
[~2020-11-16] VITALS: Ht 162.6 cm; Wt 111.4 kg
[~2020-11-16 14:30] MED LIST changes: +DEXA4TAB PO; +FAMO20TA10 PO; -LIDO2.5C3 EX; +LORA0.5T20 PO; +LOSA100T25 PO; +METO-289 PO; -NIFE90TA49 PO; +ONDA-144 PO; +PROC10TA2 PO
[2020-11-16 15:20] LABS: Eosinophils # (auto) 0.2 10 ^3/uL (0-0.8); Hemoglobin 8.5 g/dL (12.2-16.2); Lymphocytes # (auto) 1.6 10 ^3/uL (0.4-5.4); Monocytes # (auto) 1.8 10 ^3/uL (0-1.3)
[2020-11-16 15:23] LABS: Basophils # (auto) 0 10 ^3/uL (0-0.2); Basophils % (auto) 0.3 % (0.0-2.0); Eosinophils % (auto) 1.4 % (0.0-7.0); Hematocrit 24.4 % (36.0-46.0); Lymphocytes % (auto) 12.1 % (10.0-50.0); Mean Corpuscular Hemoglobin 36.8 pg (28.0-32.0); Mean Corpuscular Hgb Conc. 34.9 g/dL (32.0-36.0); Mean Corpuscular Volume 105.5 fL (80.0-100.0); Monocytes % (auto) 13.4 % (0.0-12.0); Neutrophils # (auto) 9.8 10 ^3/uL (1.6-8.6); Neutrophils % (auto) 72.8 % (37.0-80.0); Platelet Count (auto) 311 10^3/uL (140-450); Red Blood Cells 2.31 10^6/uL (4.0-5.20); Red Cell Distribution Width 16.8 % (11.8-14.3); White Blood Cell 13.5 10^3/uL (4.4-10.8)
[2020-11-16 15:35] LABS: Calcium 8.4 mg/dL (8.5-10.1); Chloride 98 mmol/L (98-107); Potassium 5.2 mmol/L (3.5-5.1); Sodium 133 mmol/L (136-145)
[2020-11-16 15:38] LABS: INR 1.08 (0.9-1.15); Partial Thromboplastin Time 29.1 sec (23.0-31.2)
[2020-11-16 15:49] LABS: Alanine Aminotransferase 12 U/L (13-56); Albumin 2.3 g/dL (3.4-5.0); Alkaline Phosphatase 166 U/L (45-117); Anion Gap 5 (5-15); Aspartate Aminotransferase 20 U/L (15-37); BUN/Creatinine Ratio 5.9; Bilirubin, Total 0.4 mg/dL (0.2-1.0); Blood Urea Nitrogen 48 mg/dL (7-18); Carbon Dioxide 30 mmol/L (21-32); GFR African American 6 mL/min; GFR Non-African American 5 mL/min; Glucose 126 mg/dL (74-106); Total Protein 7.5 g/dL (6.4-8.2)
[2020-11-16] MEDS ORDERED: SODIUM ZIRCONIUM CYCL 10 GM PAK PO ONE (17:00)
[2020-11-16] MEDS ORDERED: CALCIUM GLUC 1,000mg/50ml-NS 50 ML IV ONE (17:00)
[2020-11-16] MEDS ORDERED: ALBUTEROL SULF 2.5 MG/0.5ML(0.5%) NEB SOLN NEB ONE (17:00)
[2020-11-16] MEDS ORDERED: FUROSEMIDE 20 MG/2 ML VIAL IV ONE (17:00)
[2020-11-16] MEDS ORDERED: SODIUM BICARBONATE 8.4% INJ 50ML SYRINGE IV ONE (17:00)
[2020-11-16] MEDS ORDERED: MORPHINE SULF INJ 2 MG/ML SYRINGE 1ML IV PRN (22:30)
[2020-11-16] MEDS ORDERED: FAMOTIDINE 20 MG TAB PO SCH (22:30)
[2020-11-16] MEDS ORDERED: NITROGLYCERIN 0.4 MG SL TAB SL PRN (22:30)
[2020-11-16] MEDS ORDERED: CARISOPRODOL 350 MG TAB PO PRN (22:30)
[2020-11-16] MEDS ORDERED: cloNIDine HCL 0.1 MG TAB PO PRN (22:30)
[2020-11-16] MEDS ORDERED: ONDANSETRON HCL 4 MG/2 ML VIAL IV PRN (22:30)
[2020-11-16] MEDS: HYDROcodone-ACET 10/325MG TAB PO PRN (22:57)
[2020-11-17] MEDS ORDERED: LORazepam 0.5 MG TAB PO SCH
[2020-11-17] MEDS ORDERED: LORazepam 0.5 MG TAB PO PRN (00:15)
[2020-11-17] MEDS: HYDROcodone-ACET 10/325MG TAB PO PRN ×3 (04:31→18:45)
[2020-11-17 07:31] LABS: Albumin 2.2 g/dL (3.4-5.0); Calcium 8.1 mg/dL (8.5-10.1); Potassium 5.1 mmol/L (3.5-5.1)
[2020-11-17 07:35] LABS: BUN/Creatinine Ratio 5.7; Bilirubin, Total 0.5 mg/dL (0.2-1.0); Total Protein 7.2 g/dL (6.4-8.2)
[2020-11-17] MEDS ORDERED: SODIUM CHL 0.9% 1000 ML BAG XX ONE (09:45)
[2020-11-17] MEDS: METOPROLOL SUCCINATE XL 50 MG TAB PO SCH ×2 (09:51→21:55)
[2020-11-17] MEDS ORDERED: HEPARIN SODIUM (PORCINE) 5000 UNITS/ML 1ML VIAL ONE (13:19)
[2020-11-17 18:30] VITALS: BP 158/89
[2020-11-17] MEDS ORDERED: EPOETIN ALFA-EPBX 10,000 UNIT/1ML VIAL SC ONE (21:00)
[2020-11-17 22:00] VITALS: BP 153/78
[2020-11-18 06:13] VITALS: BP 150/87
[2020-11-18 08:31] VITALS: BP 133/63
[2020-11-18] MEDS: METOPROLOL SUCCINATE XL 50 MG TAB PO SCH ×2 (12:41→21:01)
[2020-11-18 13:00] VITALS: BP 141/67
[2020-11-18 16:35] VITALS: BP 143/70
[2020-11-18] MEDS: LACTULOSE 20Gm/30ML SOLN PO PRN ×2 (18:12→23:27)
[2020-11-18] MEDS: HYDROcodone-ACET 10/325MG TAB PO PRN (18:12)
[2020-11-18] MEDS ORDERED: FERR1TAB17 PO (19:06)
[2020-11-18 22:00] VITALS: BP 144/64
[2020-11-19] VITALS (7 sets, daily range): BP systolic 116–157; BP diastolic 53–87
[2020-11-19] MEDS: HYDROcodone-ACET 10/325MG TAB PO PRN ×2 (05:50→18:45)
[2020-11-19 06:25] LABS: Hemoglobin 9.5 g/dL (12.2-16.2)
[2020-11-19 06:29] LABS: Hematocrit 28.6 % (36.0-46.0)
[2020-11-19] MEDS ORDERED: LEVOTHYROXINE SODIUM 50 MCG TAB PO SCH ×2 (07:00→16:30)
[2020-11-19] MEDS ORDERED: SODIUM CHL 0.9% 1000 ML BAG XX ONE (07:00)
[2020-11-19] MEDS ORDERED: IBUP400T22 PO (12:12)
[2020-11-19] MEDS ORDERED: OLME40TA26 PO (12:12)
[2020-11-19] MEDS ORDERED: IBUP400T23 PO (12:15)
[2020-11-19] MEDS ORDERED: GABA-339 PO (12:16)
[2020-11-19] MEDS: FAMOTIDINE 20 MG TAB PO SCH (13:17)
[2020-11-19] MEDS: METOPROLOL SUCCINATE XL 50 MG TAB PO SCH ×2 (13:18→23:06)
[2020-11-19] MEDS ORDERED: LEVOTHYROXINE SODIUM 100 MCG TAB PO ONE (16:45)
[2020-11-19] MEDS ORDERED: EPOETIN ALFA-EPBX 10,000 UNIT/1ML VIAL SC ONE (21:00)
[2020-11-20] VITALS (7 sets, daily range): BP systolic 129–166; BP diastolic 56–80
[2020-11-20] MEDS: LEVOTHYROXINE SODIUM 100 MCG TAB PO SCH (06:21)
[2020-11-20] MEDS: METOPROLOL SUCCINATE XL 50 MG TAB PO SCH ×2 (10:27→21:55)
[2020-11-20] MEDS: HYDROcodone-ACET 10/325MG TAB PO PRN (18:38)
[2020-11-21 05:00] VITALS: BP 162/77
[2020-11-21] MEDS: LEVOTHYROXINE SODIUM 100 MCG TAB PO SCH (06:32)
[2020-11-21 09:00] VITALS: BP 160/74
[2020-11-21] MEDS: FAMOTIDINE 20 MG TAB PO SCH (11:02)
[2020-11-21] MEDS: METOPROLOL SUCCINATE XL 50 MG TAB PO SCH ×2 (11:03→21:59)
[2020-11-21 13:00] VITALS: BP 140/73
[2020-11-21 16:48] VITALS: BP 148/67
[2020-11-21] MEDS: HYDROcodone-ACET 10/325MG TAB PO PRN (17:09)
[2020-11-21 22:12] VITALS: BP 137/71
[2020-11-22 05:10] VITALS: BP 151/65
[2020-11-22 06:03] LABS: Hematocrit 26.5 % (36.0-46.0)
[2020-11-22] MEDS: HYDROcodone-ACET 10/325MG TAB PO PRN ×2 (06:22→17:03)
[2020-11-22] MEDS: LEVOTHYROXINE SODIUM 100 MCG TAB PO SCH (06:22)
[2020-11-22] MEDS ORDERED: SODIUM CHL 0.9% 1000 ML BAG XX ONE (07:00)
[2020-11-22 08:00] VITALS: BP 137/71
[2020-11-22 09:18] VITALS: BP 168/89
[2020-11-22] MEDS: METOPROLOL SUCCINATE XL 50 MG TAB PO SCH ×2 (11:59→21:10)
[2020-11-22 12:11] LABS: Calcium 8.5 mg/dL (8.5-10.1)
[2020-11-22 12:14] LABS: BUN/Creatinine Ratio 5.9
[2020-11-22 12:28] VITALS: BP 125/51
[2020-11-22 16:59] VITALS: BP 123/56
[2020-11-22] MEDS ORDERED: EPOETIN ALFA-EPBX 10,000 UNIT/1ML VIAL SC ONE (21:00)
[2020-11-22 22:00] VITALS: BP 151/74
[2020-11-23 05:00] VITALS: BP 148/71
[2020-11-23 05:36] LABS: Basophils # (auto) 0.1 10 ^3/uL (0-0.2); Basophils % (auto) 0.6 % (0.0-2.0); Eosinophils # (auto) 0.3 10 ^3/uL (0-0.8); Eosinophils % (auto) 2.2 % (0.0-7.0); Hemoglobin 8.5 g/dL (12.2-16.2); Lymphocytes # (auto) 1.8 10 ^3/uL (0.4-5.4); Lymphocytes % (auto) 12.5 % (10.0-50.0); Mean Corpuscular Hemoglobin 36.2 pg (28.0-32.0); Mean Corpuscular Hgb Conc. 34.1 g/dL (32.0-36.0); Mean Corpuscular Volume 106.1 fL (80.0-100.0); Monocytes % (auto) 13.8 % (0.0-12.0); Neutrophils # (auto) 10.2 10 ^3/uL (1.6-8.6); Neutrophils % (auto) 70.9 % (37.0-80.0); Platelet Count (auto) 405 10^3/uL (140-450); Red Blood Cells 2.35 10^6/uL (4.0-5.20); Red Cell Distribution Width 16.9 % (11.8-14.3); White Blood Cell 14.3 10^3/uL (4.4-10.8)
[2020-11-23 05:40] LABS: Calcium 8.3 mg/dL (8.5-10.1); Potassium 5.3 mmol/L (3.5-5.1)
[2020-11-23 05:42] LABS: BUN/Creatinine Ratio 6.5
[2020-11-23] MEDS ORDERED: SODIUM CHL 0.9% 1000 ML BAG XX ONE (07:00)
[2020-11-23] MEDS: HYDROcodone-ACET 10/325MG TAB PO PRN (09:00)
[2020-11-23 09:09] VITALS: BP 147/66
[2020-11-23] MEDS: FAMOTIDINE 20 MG TAB PO SCH (10:28)
[2020-11-23] MEDS: METOPROLOL SUCCINATE XL 50 MG TAB PO SCH (10:29)
[2020-11-23 13:01] VITALS: BP 134/71
[2020-11-23] MEDS ORDERED: EPOETIN ALFA-EPBX 10,000 UNIT/1ML VIAL SC ONE (21:00)
== END 2020-11-23 15:00 | DRG 374 ==
LOC: WEST WING 14:30 → ER 14:30 → EDBD 14:30 → OVERFLOW 22:19 → WEST WING 11-17 17:16
PROVIDERS: ADMIT Internal Medicine Cardiovascular Disease; ATTEND Internal Medicine Cardiovascular Disease
PROC: 05HY33Z Insertion of Infusion Device into Upper Vein, Percutaneous Approach (ICD-10-PCS; 2020-11-16)
PROC: 5A1D70Z Performance of Urinary Filtration, Intermittent, Less than 6 Hours Per Day (ICD-10-PCS; principal; 2020-11-17)
PROC: 5A1D70Z Performance of Urinary Filtration, Intermittent, Less than 6 Hours Per Day (ICD-10-PCS; 2020-11-19)
PROC: 5A1D70Z Performance of Urinary Filtration, Intermittent, Less than 6 Hours Per Day (ICD-10-PCS; 2020-11-23)
DX: C15.9 Malignant neoplasm of esophagus, unspecified (principal); N18.6 End stage renal disease; E43 Unspecified severe protein-calorie malnutrition; I50.32 Chronic diastolic (congestive) heart failure; I13.2 Hypertensive heart and chronic kidney disease with heart failure and with stage 5 chronic kidney disease, or end stage renal disease; K92.2 Gastrointestinal hemorrhage, unspecified; Z20.822 Contact with and (suspected) exposure to COVID-19; E87.5 Hyperkalemia; E66.01 Morbid (severe) obesity due to excess calories; D63.1 Anemia in chronic kidney disease; I25.10 Atherosclerotic heart disease of native coronary artery without angina pectoris; M19.90 Unspecified osteoarthritis, unspecified site; J44.9 Chronic obstructive pulmonary disease, unspecified; E03.9 Hypothyroidism, unspecified; Z99.2 Dependence on renal dialysis; Z88.1 Allergy status to other antibiotic agents; Z88.8 Allergy status to other drugs, medicaments and biological substances; Z79.899 Other long term (current) drug therapy; Z82.3 Family history of stroke; Z82.49 Family history of ischemic heart disease and other diseases of the circulatory system; Z86.73 Personal history of transient ischemic attack (TIA), and cerebral infarction without residual deficits; Z68.39 Body mass index [BMI] 39.0-39.9, adult
CPT/HCPCS: 36415; 71045; 80048; 80053; 82306; 83880; 83970; 84100; 84132; 84439; 84443; 84484; 85014; 85018; 85025; 85610; 85730; 86850; 86900; 86901; 86920; 87040; 87081; 87426; 90935; 93005; 94640; 97163; G0378; J1642

== ENCOUNTER 2020-11-24 17:51 | Inpatient (IN) | payer MEDICARE, BC ==
[~2020-11-24] VITALS: Ht 162.6 cm; Wt 109.2 kg
[2020-11-24] MEDS ORDERED: PIPERACILLIN-TAZO 4.5GM 100 ML IV ONE (19:15)
[2020-11-24] MEDS ORDERED: VANCOMYCIN PER PHARMACY 0 MG IV SCH (19:15)
[2020-11-24 19:37] LABS: Basophils # (auto) 0 10 ^3/uL (0-0.2); Basophils % (auto) 0.3 % (0.0-2.0); Eosinophils # (auto) 0.2 10 ^3/uL (0-0.8); Hemoglobin 8.8 g/dL (12.2-16.2); Lymphocytes # (auto) 1.3 10 ^3/uL (0.4-5.4); Red Cell Distribution Width 17.3 % (11.8-14.3)
[2020-11-24 19:39] LABS: Eosinophils % (auto) 1.2 % (0.0-7.0); Hematocrit 26.7 % (36.0-46.0); Lymphocytes % (auto) 9.3 % (10.0-50.0); Mean Corpuscular Hemoglobin 34.7 pg (28.0-32.0); Mean Corpuscular Hgb Conc. 32.8 g/dL (32.0-36.0); Mean Corpuscular Volume 105.7 fL (80.0-100.0); Monocytes # (auto) 1.9 10 ^3/uL (0-1.3); Monocytes % (auto) 13.5 % (0.0-12.0); Neutrophils # (auto) 10.7 10 ^3/uL (1.6-8.6); Neutrophils % (auto) 75.7 % (37.0-80.0); Nucleated Red Blood Cells % 0.1 %; Red Blood Cells 2.53 10^6/uL (4.0-5.20); White Blood Cell 14.2 10^3/uL (4.4-10.8)
[2020-11-24 19:59] LABS: Albumin 2.4 g/dL (3.4-5.0)
[2020-11-24 20:04] LABS: Bilirubin, Total 0.4 mg/dL (0.2-1.0); Total Protein 7.7 g/dL (6.4-8.2)
[2020-11-24] MEDS ORDERED: ALBUTEROL SULF 2.5 MG/0.5ML(0.5%) NEB SOLN NEB PRN (21:45)
[2020-11-24] MEDS ORDERED: ONDANSETRON HCL 4 MG/2 ML VIAL IV PRN (21:45)
[2020-11-24] MEDS ORDERED: TEMAZEPAM 15 MG CAP PO PRN (21:45)
[2020-11-24] MEDS ORDERED: cloNIDine HCL 0.1 MG TAB PO PRN (21:45)
[2020-11-24] MEDS ORDERED: MORPHINE SULF INJ 2 MG/ML SYRINGE 1ML IV PRN (21:45)
[2020-11-24] MEDS ORDERED: NITROGLYCERIN 0.4 MG SL TAB SL PRN (21:45)
[2020-11-24] MEDS ORDERED: ACETAMINOPHEN 325 MG TAB PO PRN (21:45)
[2020-11-24 22:00] VITALS: BP 161/53
[2020-11-24] MEDS ORDERED: VANCOMYCIN 1GM/250ML 250 ML IV ONE (22:00)
[2020-11-24] MEDS: CARISOPRODOL 350 MG TAB PO SCH (22:19)
[2020-11-24] MEDS: METOPROLOL TARTRATE 50 MG TAB PO SCH (22:21)
[2020-11-24 23:50] VITALS: BP 150/70
[2020-11-25] VITALS (7 sets, daily range): BP systolic 129–156; BP diastolic 56–69
[2020-11-25 05:32] LABS: Eosinophils # (auto) 0.3 10 ^3/uL (0-0.8); Hemoglobin 8.2 g/dL (12.2-16.2); Lymphocytes # (auto) 1.4 10 ^3/uL (0.4-5.4); Red Cell Distribution Width 17.3 % (11.8-14.3)
[2020-11-25 05:35] LABS: Basophils # (auto) 0 10 ^3/uL (0-0.2); Basophils % (auto) 0.3 % (0.0-2.0); Eosinophils % (auto) 2.3 % (0.0-7.0); Hematocrit 24.3 % (36.0-46.0); Lymphocytes % (auto) 11.7 % (10.0-50.0); Mean Corpuscular Hemoglobin 35.9 pg (28.0-32.0); Mean Corpuscular Hgb Conc. 33.6 g/dL (32.0-36.0); Mean Corpuscular Volume 106.7 fL (80.0-100.0); Monocytes % (auto) 16.5 % (0.0-12.0); Neutrophils # (auto) 8.3 10 ^3/uL (1.6-8.6); Neutrophils % (auto) 69.2 % (37.0-80.0); Red Blood Cells 2.28 10^6/uL (4.0-5.20)
[2020-11-25 05:56] LABS: Potassium 4.1 mmol/L (3.5-5.1)
[2020-11-25 06:02] LABS: Albumin 2.1 g/dL (3.4-5.0); BUN/Creatinine Ratio 5.3; Bilirubin, Total 0.4 mg/dL (0.2-1.0); Calcium 7.6 mg/dL (8.5-10.1); Total Protein 6.7 g/dL (6.4-8.2)
[2020-11-25] MEDS: LEVOTHYROXINE SODIUM 50 MCG TAB PO SCH (07:00)
[2020-11-25] MEDS: AZITHROMYCIN 500MG/ 250ML 250 ML IV SCH (09:55)
[2020-11-25] MEDS: cefTRIAXone 1GM/50ML D5W 50 ML IV SCH (09:55)
[2020-11-25] MEDS: CARISOPRODOL 350 MG TAB PO SCH ×2 (09:59→21:48)
[2020-11-25] MEDS: METOPROLOL TARTRATE 50 MG TAB PO SCH ×2 (09:59→21:48)
[2020-11-25] MEDS ORDERED: PANTOPRAZOLE 40 MG TAB PO SCH (10:00)
[2020-11-25] MEDS: HYDROcodone-ACET 10/325MG TAB PO PRN (17:39)
[2020-11-25] MEDS: LACTULOSE 20Gm/30ML SOLN PO PRN (17:39)
[2020-11-25] MEDS ORDERED: VANCOMYCIN 1GM/250ML 250 ML IV ONE (18:00)
[2020-11-26 05:00] VITALS: BP 146/69
[2020-11-26] MEDS: LEVOTHYROXINE SODIUM 50 MCG TAB PO SCH (06:30)
[2020-11-26 06:59] LABS: Eosinophils # (auto) 0.3 10 ^3/uL (0-0.8); Monocytes # (auto) 1.5 10 ^3/uL (0-1.3); Red Cell Distribution Width 17.1 % (11.8-14.3); White Blood Cell 9.9 10^3/uL (4.4-10.8)
[2020-11-26 07:01] LABS: Basophils # (auto) 0 10 ^3/uL (0-0.2); Basophils % (auto) 0.5 % (0.0-2.0); Eosinophils % (auto) 3.1 % (0.0-7.0); Hematocrit 23.5 % (36.0-46.0); Lymphocytes # (auto) 1.5 10 ^3/uL (0.4-5.4); Mean Corpuscular Hemoglobin 35.4 pg (28.0-32.0); Mean Corpuscular Hgb Conc. 34.2 g/dL (32.0-36.0); Mean Corpuscular Volume 103.7 fL (80.0-100.0); Monocytes % (auto) 15.5 % (0.0-12.0); Neutrophils # (auto) 6.5 10 ^3/uL (1.6-8.6); Neutrophils % (auto) 65.9 % (37.0-80.0); Nucleated Red Blood Cells % 0.1 %; Red Blood Cells 2.27 10^6/uL (4.0-5.20)
[2020-11-26 08:00] VITALS: BP 133/74
[2020-11-26 08:30] VITALS: BP 133/74
[2020-11-26] MEDS ORDERED: SODIUM CHL 0.9% 1000 ML BAG XX ONE (09:00)
[2020-11-26] MEDS: cefTRIAXone 1GM/50ML D5W 50 ML IV SCH (09:14)
[2020-11-26] MEDS: AZITHROMYCIN 500MG/ 250ML 250 ML IV SCH (09:15)
[2020-11-26] MEDS: METOPROLOL TARTRATE 50 MG TAB PO SCH (09:15)
[2020-11-26] MEDS: CARISOPRODOL 350 MG TAB PO SCH (09:15)
[2020-11-26] MEDS: HYDROcodone-ACET 10/325MG TAB PO PRN (09:17)
[2020-11-26 12:30] VITALS: BP 139/60
[2020-11-26] MEDS: CALCIUM ACETATE 667 MG CAP PO SCH ×2 (12:31→18:06)
[2020-11-26] MEDS: OXYCODONE W/ ACETAMINOPHEN 5/325MG TABLET PO PRN (16:26)
[2020-11-26 16:56] VITALS: BP 120/57
[2020-11-26] MEDS ORDERED: EPOETIN ALFA-EPBX 10,000 UNIT/1ML VIAL SC ONE (21:00)
[2020-11-26 22:00] VITALS: BP 126/59
[2020-11-27] VITALS (7 sets, daily range): BP systolic 98–150; BP diastolic 44–87
[2020-11-27] MEDS: CARISOPRODOL 350 MG TAB PO SCH ×3 (00:15→21:50)
[2020-11-27] MEDS: METOPROLOL TARTRATE 50 MG TAB PO SCH ×3 (00:15→21:49)
[2020-11-27] MEDS: OXYCODONE W/ ACETAMINOPHEN 5/325MG TABLET PO PRN ×3 (04:35→17:07)
[2020-11-27] MEDS: LEVOTHYROXINE SODIUM 50 MCG TAB PO SCH (06:21)
[2020-11-27 06:27] LABS: Basophils # (auto) 0 10 ^3/uL (0-0.2); Hematocrit 23.2 % (36.0-46.0); Lymphocytes # (auto) 1.2 10 ^3/uL (0.4-5.4); Mean Corpuscular Volume 102.5 fL (80.0-100.0)
[2020-11-27 06:29] LABS: Basophils % (auto) 0.5 % (0.0-2.0); Eosinophils # (auto) 0.2 10 ^3/uL (0-0.8); Eosinophils % (auto) 1.5 % (0.0-7.0); Hemoglobin 8.2 g/dL (12.2-16.2); Lymphocytes % (auto) 11.5 % (10.0-50.0); Mean Corpuscular Hemoglobin 36.1 pg (28.0-32.0); Mean Corpuscular Hgb Conc. 35.2 g/dL (32.0-36.0); Monocytes # (auto) 1.7 10 ^3/uL (0-1.3); Monocytes % (auto) 17.1 % (0.0-12.0); Neutrophils % (auto) 69.4 % (37.0-80.0); Nucleated Red Blood Cells % 0.1 %; Red Blood Cells 2.26 10^6/uL (4.0-5.20); Red Cell Distribution Width 16.8 % (11.8-14.3); White Blood Cell 10.1 10^3/uL (4.4-10.8)
[2020-11-27 06:34] LABS: BUN/Creatinine Ratio 4.6; Calcium 7.8 mg/dL (8.5-10.1); Phosphorus 2.8 mg/dL (2.5-4.90); Potassium 4.2 mmol/L (3.5-5.1)
[2020-11-27] MEDS: CALCIUM ACETATE 667 MG CAP PO SCH ×3 (08:17→18:24)
[2020-11-27] MEDS: cefTRIAXone 1GM/50ML D5W 50 ML IV SCH (08:17)
[2020-11-27] MEDS: AZITHROMYCIN 500MG/ 250ML 250 ML IV SCH (10:12)
[2020-11-28 05:00] VITALS: BP 130/64
[2020-11-28] MEDS: HYDROcodone-ACET 10/325MG TAB PO PRN ×2 (06:02→14:41)
[2020-11-28] MEDS: LEVOTHYROXINE SODIUM 50 MCG TAB PO SCH (06:02)
[2020-11-28 06:47] LABS: BUN/Creatinine Ratio 4.7; Calcium 7.9 mg/dL (8.5-10.1); Potassium 4.5 mmol/L (3.5-5.1)
[2020-11-28 08:00] VITALS: BP 137/63
[2020-11-28] MEDS: CALCIUM ACETATE 667 MG CAP PO SCH ×3 (08:21→17:57)
[2020-11-28] MEDS: cefTRIAXone 1GM/50ML D5W 50 ML IV SCH (09:01)
[2020-11-28 09:07] LABS: Eosinophils # (auto) 0.1 10 ^3/uL (0-0.8); Mean Corpuscular Volume 104.9 fL (80.0-100.0)
[2020-11-28 09:10] LABS: Basophils # (auto) 0 10 ^3/uL (0-0.2); Basophils % (auto) 0.4 % (0.0-2.0); Eosinophils % (auto) 0.8 % (0.0-7.0); Hematocrit 27.5 % (36.0-46.0); Mean Corpuscular Hemoglobin 34.4 pg (28.0-32.0); Mean Corpuscular Hgb Conc. 32.8 g/dL (32.0-36.0); Monocytes % (auto) 16.4 % (0.0-12.0); Neutrophils # (auto) 9.1 10 ^3/uL (1.6-8.6); Neutrophils % (auto) 74.4 % (37.0-80.0); Red Blood Cells 2.62 10^6/uL (4.0-5.20); Red Cell Distribution Width 17.5 % (11.8-14.3); White Blood Cell 12.2 10^3/uL (4.4-10.8)
[2020-11-28] MEDS: METOPROLOL TARTRATE 50 MG TAB PO SCH ×2 (09:59→21:46)
[2020-11-28] MEDS: CARISOPRODOL 350 MG TAB PO SCH ×2 (10:00→21:47)
[2020-11-28] MEDS: OXYCODONE W/ ACETAMINOPHEN 5/325MG TABLET PO PRN ×2 (12:12→17:58)
[2020-11-28] MEDS: LACTULOSE 20Gm/30ML SOLN PO PRN (14:41)
[2020-11-28 17:12] VITALS: BP 124/62
[2020-11-28 22:00] VITALS: BP 112/63
[2020-11-29] MEDS: HYDROcodone-ACET 10/325MG TAB PO PRN (01:38)
[2020-11-29 05:00] VITALS: BP 113/59
[2020-11-29] MEDS: LEVOTHYROXINE SODIUM 50 MCG TAB PO SCH (06:18)
[2020-11-29] MEDS: OXYCODONE W/ ACETAMINOPHEN 5/325MG TABLET PO PRN ×2 (06:20→16:38)
[2020-11-29 06:26] LABS: Hematocrit 25.7 % (36.0-46.0); Hemoglobin 8.5 g/dL (12.2-16.2)
[2020-11-29] MEDS ORDERED: SODIUM CHL 0.9% 1000 ML BAG XX ONE (07:00)
[2020-11-29] MEDS: cefTRIAXone 1GM/50ML D5W 50 ML IV SCH (08:31)
[2020-11-29] MEDS: CALCIUM ACETATE 667 MG CAP PO SCH ×3 (08:31→17:48)
[2020-11-29 08:48] VITALS: BP 112/60
[2020-11-29] MEDS: METOPROLOL TARTRATE 50 MG TAB PO SCH ×2 (10:00→22:01)
[2020-11-29] MEDS: CARISOPRODOL 350 MG TAB PO SCH ×2 (10:04→22:00)
[2020-11-29 12:49] VITALS: BP 113/57
[2020-11-29 17:00] VITALS: BP 128/65
[2020-11-29] MEDS ORDERED: MAGNESIUM CITRATE SOLUTION 300 ML BTL PO ONE (17:45)
[2020-11-29] MEDS ORDERED: VANCOMYCIN 1GM/250ML 250 ML IV ONE (18:00)
[2020-11-29] MEDS ORDERED: VANCOMYCIN PER PHARMACY 0 MG IV SCH (18:00)
[2020-11-29] MEDS ORDERED: EPOETIN ALFA-EPBX 10,000 UNIT/1ML VIAL SC ONE (21:00)
[2020-11-29 22:00] VITALS: BP 131/68
[2020-11-30] MEDS: HYDROcodone-ACET 10/325MG TAB PO PRN (04:50)
[2020-11-30] MEDS: LEVOTHYROXINE SODIUM 50 MCG TAB PO SCH (06:47)
[2020-11-30] MEDS ORDERED: SODIUM CHL 0.9% 1000 ML BAG XX ONE (07:00)
[2020-11-30 07:33] LABS: Basophils # (auto) 0.2 10 ^3/uL (0-0.2); Basophils % (auto) 1.7 % (0.0-2.0); Eosinophils # (auto) 0.3 10 ^3/uL (0-0.8); Eosinophils % (auto) 1.9 % (0.0-7.0); Hematocrit 24.9 % (36.0-46.0); Hemoglobin 8.2 g/dL (12.2-16.2); Lymphocytes # (auto) 0.8 10 ^3/uL (0.4-5.4); Lymphocytes % (auto) 5.9 % (10.0-50.0); Mean Corpuscular Hemoglobin 34.2 pg (28.0-32.0); Mean Corpuscular Hgb Conc. 32.9 g/dL (32.0-36.0); Monocytes # (auto) 1.1 10 ^3/uL (0-1.3); Monocytes % (auto) 8.2 % (0.0-12.0); Neutrophils # (auto) 11.5 10 ^3/uL (1.6-8.6); Neutrophils % (auto) 82.3 % (37.0-80.0); Red Cell Distribution Width 17.6 % (11.8-14.3)
[2020-11-30 07:51] LABS: Potassium 4.2 mmol/L (3.5-5.1)
[2020-11-30 07:55] LABS: BUN/Creatinine Ratio 5.4; Calcium 7.9 mg/dL (8.5-10.1)
[2020-11-30 08:55] VITALS: BP 159/63
[2020-11-30] MEDS: CALCIUM ACETATE 667 MG CAP PO SCH ×3 (09:15→17:44)
[2020-11-30] MEDS: cefTRIAXone 1GM/50ML D5W 50 ML IV SCH (09:26)
[2020-11-30] MEDS: CARISOPRODOL 350 MG TAB PO SCH ×2 (09:30→22:33)
[2020-11-30] MEDS: METOPROLOL TARTRATE 50 MG TAB PO SCH ×2 (09:30→22:00)
[2020-11-30] MEDS: OXYCODONE W/ ACETAMINOPHEN 5/325MG TABLET PO PRN ×2 (12:50→18:43)
[2020-11-30 13:00] VITALS: BP 111/70
[2020-11-30] MEDS ORDERED: VANCOMYCIN 500 MG in D5W 5% 100 ML IV ONE (13:00)
[2020-11-30 16:56] VITALS: BP 105/64
[2020-11-30] MEDS ORDERED: EPOETIN ALFA-EPBX 10,000 UNIT/1ML VIAL SC ONE (21:00)
[2020-11-30 22:00] VITALS: BP 96/58
[2020-12-01 05:00] VITALS: BP 117/65
[2020-12-01] MEDS: LEVOTHYROXINE SODIUM 50 MCG TAB PO SCH (05:30)
[2020-12-01] MEDS: OXYCODONE W/ ACETAMINOPHEN 5/325MG TABLET PO PRN ×3 (05:30→18:26)
[2020-12-01] MEDS: CALCIUM ACETATE 667 MG CAP PO SCH ×3 (08:00→18:25)
[2020-12-01 09:00] VITALS: BP 157/87
[2020-12-01] MEDS: cefTRIAXone 1GM/50ML D5W 50 ML IV SCH (09:00)
[2020-12-01] MEDS: CARISOPRODOL 350 MG TAB PO SCH ×2 (10:00→21:30)
[2020-12-01] MEDS: METOPROLOL TARTRATE 50 MG TAB PO SCH ×2 (10:00→21:30)
[2020-12-01 13:00] VITALS: BP 107/53
[2020-12-01 17:27] VITALS: BP 108/73
[2020-12-01 22:00] VITALS: BP 115/54
[2020-12-02 04:54] VITALS: BP 117/52
[2020-12-02] MEDS: OXYCODONE W/ ACETAMINOPHEN 5/325MG TABLET PO PRN ×3 (05:33→18:10)
[2020-12-02] MEDS: LEVOTHYROXINE SODIUM 50 MCG TAB PO SCH (05:35)
[2020-12-02] MEDS ORDERED: SODIUM CHL 0.9% 1000 ML BAG XX ONE (07:00)
[2020-12-02] MEDS: CALCIUM ACETATE 667 MG CAP PO SCH ×3 (08:00→18:10)
[2020-12-02 09:00] VITALS: BP 121/80
[2020-12-02] MEDS: cefTRIAXone 1GM/50ML D5W 50 ML IV SCH (09:00)
[2020-12-02] MEDS: METOPROLOL TARTRATE 50 MG TAB PO SCH ×2 (10:00→21:36)
[2020-12-02] MEDS: CARISOPRODOL 350 MG TAB PO SCH ×2 (10:00→21:36)
[2020-12-02 13:00] VITALS: BP 132/66
[2020-12-02] MEDS ORDERED: PANTOPRAZOLE 40 MG TAB PO ONE (16:00)
[2020-12-02 17:00] VITALS: BP 141/81
[2020-12-02] MEDS ORDERED: VANCOMYCIN 500 MG in D5W 5% 100 ML IV ONE (18:00)
[2020-12-02] MEDS ORDERED: EPOETIN ALFA-EPBX 10,000 UNIT/1ML VIAL SC ONE (21:00)
[2020-12-02 22:00] VITALS: BP 140/68
[2020-12-03 05:00] VITALS: BP 147/69
[2020-12-03] MEDS: PANTOPRAZOLE 40 MG TAB PO SCH (06:05)
[2020-12-03] MEDS: LEVOTHYROXINE SODIUM 50 MCG TAB PO SCH (06:05)
[2020-12-03] MEDS: OXYCODONE W/ ACETAMINOPHEN 5/325MG TABLET PO PRN ×2 (06:12→18:42)
[2020-12-03 09:00] VITALS: BP 128/60
[2020-12-03] MEDS: CALCIUM ACETATE 667 MG CAP PO SCH ×3 (09:21→18:42)
[2020-12-03] MEDS: cefTRIAXone 1GM/50ML D5W 50 ML IV SCH (09:21)
[2020-12-03] MEDS: CARISOPRODOL 350 MG TAB PO SCH ×2 (09:22→22:02)
[2020-12-03] MEDS: METOPROLOL TARTRATE 50 MG TAB PO SCH ×2 (09:22→22:02)
[2020-12-03 10:59] LABS: Basophils # (auto) 0.1 10 ^3/uL (0-0.2); Eosinophils # (auto) 0.2 10 ^3/uL (0-0.8); Monocytes # (auto) 1.9 10 ^3/uL (0-1.3); Nucleated Red Blood Cells % 0.1 %
[2020-12-03 11:05] LABS: Basophils % (auto) 0.8 % (0.0-2.0); Eosinophils % (auto) 1.9 % (0.0-7.0); Hemoglobin 8.8 g/dL (12.2-16.2); Lymphocytes # (auto) 1.2 10 ^3/uL (0.4-5.4); Lymphocytes % (auto) 11.1 % (10.0-50.0); Mean Corpuscular Hemoglobin 34.8 pg (28.0-32.0); Mean Corpuscular Hgb Conc. 33.9 g/dL (32.0-36.0); Mean Corpuscular Volume 102.6 fL (80.0-100.0); Monocytes % (auto) 16.9 % (0.0-12.0); Neutrophils # (auto) 7.6 10 ^3/uL (1.6-8.6); Neutrophils % (auto) 69.3 % (37.0-80.0); Red Blood Cells 2.53 10^6/uL (4.0-5.20); Red Cell Distribution Width 16.8 % (11.8-14.3)
[2020-12-03 13:00] VITALS: BP 133/61
[2020-12-03 13:28] LABS: Calcium 8.1 mg/dL (8.5-10.1); Potassium 4.2 mmol/L (3.5-5.1)
[2020-12-03 13:32] LABS: BUN/Creatinine Ratio 4.9
[2020-12-03 16:36] VITALS: BP 127/73
[2020-12-03 22:00] VITALS: BP 144/75
[2020-12-04] MEDS: HYDROcodone-ACET 10/325MG TAB PO PRN ×2 (00:01→09:59)
[2020-12-04 05:13] VITALS: BP 134/71
[2020-12-04] MEDS: PANTOPRAZOLE 40 MG TAB PO SCH (06:04)
[2020-12-04] MEDS: LEVOTHYROXINE SODIUM 50 MCG TAB PO SCH (06:04)
[2020-12-04 08:00] VITALS: BP 142/80
[2020-12-04 09:00] VITALS: BP 145/67
[2020-12-04] MEDS: CALCIUM ACETATE 667 MG CAP PO SCH (10:00)
[2020-12-04] MEDS: CARISOPRODOL 350 MG TAB PO SCH (10:00)
[2020-12-04] MEDS: METOPROLOL TARTRATE 50 MG TAB PO SCH (10:01)
[2020-12-04] MEDS: cefTRIAXone 1GM/50ML D5W 50 ML IV SCH (10:01)
== END 2020-12-04 12:15 | DRG 377 ==
LOC: ER 17:51 → EDBD 17:51 → TELE 21:42 → TELE-WESTW 23:13
PROVIDERS: ADMIT Nurse Practitioner; ATTEND Internal Medicine Cardiovascular Disease
PROC: 5A1D70Z Performance of Urinary Filtration, Intermittent, Less than 6 Hours Per Day (ICD-10-PCS; principal; 2020-11-28)
PROC: 5A1D70Z Performance of Urinary Filtration, Intermittent, Less than 6 Hours Per Day (ICD-10-PCS; 2020-11-29)
PROC: 5A1D70Z Performance of Urinary Filtration, Intermittent, Less than 6 Hours Per Day (ICD-10-PCS; 2020-11-30)
PROC: 5A1D70Z Performance of Urinary Filtration, Intermittent, Less than 6 Hours Per Day (ICD-10-PCS; 2020-12-01)
DX: K92.2 Gastrointestinal hemorrhage, unspecified (principal); N18.6 End stage renal disease; E43 Unspecified severe protein-calorie malnutrition; I12.0 Hypertensive chronic kidney disease with stage 5 chronic kidney disease or end stage renal disease; C15.9 Malignant neoplasm of esophagus, unspecified; Z68.41 Body mass index [BMI] 40.0-44.9, adult; R78.81 Bacteremia; R06.02 Shortness of breath; Z99.2 Dependence on renal dialysis; D63.8 Anemia in other chronic diseases classified elsewhere; Z20.822 Contact with and (suspected) exposure to COVID-19; Z88.8 Allergy status to other drugs, medicaments and biological substances; D63.1 Anemia in chronic kidney disease; E03.9 Hypothyroidism, unspecified; E66.9 Obesity, unspecified; E87.5 Hyperkalemia; M19.90 Unspecified osteoarthritis, unspecified site; Z82.3 Family history of stroke; Z82.49 Family history of ischemic heart disease and other diseases of the circulatory system; Z85.01 Personal history of malignant neoplasm of esophagus; Z79.899 Other long term (current) drug therapy; B95.7 Other staphylococcus as the cause of diseases classified elsewhere
CPT/HCPCS: 36415; 36600; 71045; 80048; 80053; 80202; 82565; 82805; 83605; 83880; 84100; 85014; 85018; 85025; 87040; 87077; 87081; 87186; 87426; 90935; 93005; 96365; 96366; 96368; G0378; J0696; J1642; J2405; J2543; J7042; J7060